=== PATIENT | male | born 1985 | race Caucasian/White ===

== ENCOUNTER 2016-07-05 17:40 | Inpatient (IN) | payer OTHER, MEDICAID ==
[~2016-07-05] VITALS: Ht 174 cm; Wt 64.2 kg
[2016-07-05 17:44] VITALS: BP 115/64; PULSE 113; RESP 13; O2SAT 100
--- NOTE | 2016-07-05 17:58 | ED.REPORT ---
HPI-General Illness Date of Service Jul 05, 2016 ED Provider: Dr. Bladimir New MD A 30 year old male with a history of gastroparesis, pancreatitis, acute kidney disease, EtOH abuse, depression, anxiety, polysubstance abuse, liver failure, chronic GI bleeds, anemia and noncompliance presents to the ED via [facility] complaining of heroin withdrawal symptoms that began earlier today. Patient is currently serving a sentence in halfway for 80 days. Patient lasted used heroin 4 days ago. Associated symptoms include nausea, vomiting and anxiety. He denies any other current medical complaints at this time. Nursing Notes Stated Complaint: DEHYDRATION Chief Complaint: General Complaint Nursing Notes Reviewed: Yes Allergies: Coded Allergies: Penicillins (Verified Allergy, Unknown, 07/05/16) venom-honey bee (Verified Allergy, Unknown, 07/05/16) REPORTED FROM CHILDHOOD, DOESN'T REMEMBER No Active Prescriptions or Reported Meds General Time Seen by MD: 17:58 Chief Complaint Other (Withdrawal symptoms) Hx Obtained From: Patient Arrived By: Police Onset Occurred: Yesterday Symptom Duration: Since onset Associated with: Reports: Nausea, Vomiting, Denies: Fever Pertinent Negative: Pt denies other symptoms Recent Healthcare: No recent doctor visit, No recent hospitalization Past Medical History Past Medical History gastroparesis, pancreatitis, liver failure, recurrent small bowel obstructions, alcohol dependency, acute kidney disease, anemia, depression, anxiety, PUD with history of GI bleeding, esophageal dilation, polysubstance abuse, h/o noncompliance Past Surgical History Gastrojejunostomy Michael-en-Y surgery Smoking History Current Every Day Smoker Social History Alcohol Use: 1-3 per day Drug Use: Cocaine, IV drugs, Meth Other Social History: Poor social support, Local resident (Pt currently in halfway ) Ambulatory Status Independent Review of Systems Pt is currently complaining of withdrawal symptoms. Full Review of Systems Constitutional: Denies: Chills, Fever Respiratory: Denies: Shortness of breath Cardiovascular: Denies: Chest pain GI: Reports: Nausea, Vomiting, Denies: Abdominal pain, Diarrhea Neurologic: Denies: Change LOC Complete sys rev & neg: except as marked. Physical Exam Vital Signs Vital Signs Date Time Temp Pulse Resp B/P Pulse Ox O2 Delivery O2 Flow Rate FiO2 07/05/16 19:39 93 16 112/62 99 Room Air 07/05/16 17:44 36.5 113 13 115/64 100 Initial VS: Reviewed Neck: Supple, Non-tender, Full range of motion Skin: Warm, Dry, No cyanosis Psychiatric: Mood/affect normal, Behavior normal, Normal thought content General/Constitutional: Awake, Alert Behavior: Positive: Anxious Head / Eyes: Atraumatic, Normocephalic, PERRL ENT: Atraumatic, Airway patent Mouth: Positive: Mucous membranes dry Respiratory / Chest: Atraumatic, Breath sounds NL, Breath sounds = bilat Cardiovascular: Regular rhythm, Heart sounds NL Heart Rate / Rhythm: Positive: Tachycardia Abdomen: Atraumatic, Soft Upper Extremities Upper Extremity / MS: Atraumatic, Neurologic intact, Vascular intact Lower Extremity / Pelvis / MS: Atraumatic, Neurologic intact, Vascular intact Interpretation & Diagnostics Lab Results Interpretation Result Diagram: 07/05/16185707/05/161857 Test 07/05/16 18:58 White Blood Count 13.5th/mm3 (3.8-10.1) Red Blood Count 3.85mil/mm3 (4.40-5.80) Hemoglobin 11.1g/dL (13.8-17.2) Hematocrit 34.5% (41.0-50.0) Mean Corpuscular Volume 89.6fL (81-100) Mean Corpuscular Hemoglobin 28.8pg (27.0-35.0) Mean Corpuscular Hemoglobin Concent 32.2% (32.0-37.0) Red Cell Distribution Width 14.2% (12.3-15.4) Platelet Count 520bil/L (150-400) Neutrophils (%) (Auto) 79.8% (40-74) Lymphocytes (%) (Auto) 13.0% (14-46) Monocytes (%) (Auto) 6.8% (4-12) Eosinophils (%) (Auto) 0.1% (0-5) Basophils (%) (Auto) 0.1% (0-3) Sodium Level 133mEq/L (134-144) Potassium Level 3.4mEq/L (3.5-5.2) Chloride Level 63mEq/L (97-108) Carbon Dioxide Level 44mmol/L (18-29) Blood Urea Nitrogen 74mg/dL (6-20) Creatinine 6.77mg/dL (0.76-1.27) Estimat Glomerular Filtration Rate 10mL/min (>59) Glucose Level 94mg/dL (60-99) Calcium Level 8.1mg/dL (8.5-10.1) Total Bilirubin 0.5mg/dL (0.0-1.2) Aspartate Amino Transf (AST/SGOT) 25U/L (0-50) Alanine Aminotransferase (ALT/SGPT) 20U/L (0-44) Alkaline Phosphatase 139U/L (25-150) Total Protein 9.6g/dL (6.4-8.4) Albumin 4.3g/dL (3.4-5.0) Lipase 20U/L (13-60) Re-Eval/Medical Decision Time of Eval: 20:04 Patient Status: Condition improved Re-Evaluation/Progress Note: Patient is rechecked. He is informed of his lab results and diagnosis. All questions are addressed. He understands and agrees with the treatment plan. Patient is currently requesting anxiety medication. Consultation : Referral / Consult Name: Robb Landaverde MD Consulted With: Hospitalist Call Returned at: 20:30 Gynecological Assistant: Will see patient, Agrees with eval, Agrees with plan Counseled Regarding: Diagnosis, Lab results, Need for admission Discharge & Departure Primary Impression: Acute on chronic renal insufficiency Additional Impressions: Heroin withdrawal Vomiting Vomiting type: unspecified Vomiting Intractability: unspecified Nausea presence: with nausea Qualified Code: R11.2 - Nausea with vomiting, unspecified Lactic acidosis Disposition: ADMITTED TO HOSPITAL Discharge Condition All VS Reviewed: Yes Condition: Stable Referrals: [facility] (PCP) [facility] Scribe Attestation Portions of this note were transcribed by Tima Culp. I, Dr. New personally performed the history, physical exam and medical decision-making; I reviewed and confirmed the accuracy of the information in the transcribed note. Signed by: Tammie Pino, 07/05/16 Bladimir Damon DO Jul 05, 2016 17:58 TIMA CULP Jul 05, 2016 18:50 TIM[facility] CULP Jul 05, 2016 18:50
[2016-07-05] MEDS ORDERED: 0.9% Sodium Chloride 1,000 ML IV SCH (18:45)
[2016-07-05] MEDS ORDERED: Ondansetron 2 mg/mL 2 mL Inj IVPUSH PRN (18:45)
[2016-07-05 19:09] LABS: BASOPHILS % (AUTO) 0.1 % (0-3); EOSINOPHILS % (AUTO) 0.1 % (0-5); MONOCYTES % (AUTO) 6.8 % (4-12); Mean Corpuscular Hemoglobin 28.8 pg (27.0-35.0); Mean Corpuscular Volume 89.6 fL (81-100); NEUTROPHILS % (AUTO) 79.8 % (40-74); Platelet Count 520 bil/L (150-400)
[2016-07-05 19:39] VITALS: BP 112/62; PULSE 93; RESP 16; O2SAT 99
[2016-07-05] MEDS ORDERED: Polyethylene Glycol (PEG) 17 Gm Powder PO PRN (20:35)
[2016-07-05] MEDS ORDERED: Alum-Mag Hydrox-Simeth 30 mL Suspension PO PRN (20:35)
[2016-07-05] MEDS: 0.9% Sodium Chloride 1,000 ML IV SCH (21:23)
[2016-07-05 21:48] VITALS: PULSE 100; RESP 15; O2SAT 95
[2016-07-05 22:00] VITALS: BP 103/64; PULSE 93; RESP 20; O2SAT 99
[2016-07-05 22:50] LABS: APPEARANCE,URINE CLEAR (CLEAR,HAZY); COLOR,URINE YELLOW (YELLOW); OCCULT BLOOD,URINE TRACE (NEGATIVE); PH,URINE 8.5 (5.0-8.0); UROBILINOGEN,URINE NORMAL (NORMAL)
[2016-07-05] MEDS: LORazepam 1 mg Tablet PO PRN (22:56)
[2016-07-05] MEDS: Ondansetron 2 mg/mL 2 mL Inj IVPUSH PRN (22:57)
[2016-07-05 23:10] VITALS: PULSE 89
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
[2016-07-06] VITALS (8 sets, daily range): BP systolic 98–115; BP diastolic 59–69; PULSE 85–117; RESP 16–21; O2SAT 95–100
[2016-07-06] MEDS: Ondansetron 2 mg/mL 2 mL Inj IVPUSH PRN ×2 (05:27→06:20)
--- NOTE | 2016-07-06 06:31 | NUR ---
Admit to Room 1021 Patient admitted to room 1021 from the ED at 2155 accompanied by ED staff. Chief complaint from patient is nausea and "not feeling good". VSS. Bowel sounds hypoactive. Anti-emetic administered along with anti anxiety medication. Patient cooperative with assessment . Call light within reach. Patient requesting to rest.
[2016-07-06 06:49] LABS: BASOPHILS % (AUTO) 0.3 % (0-3); EOSINOPHILS % (AUTO) 0.7 % (0-5); MONOCYTES % (AUTO) 6.4 % (4-12); Mean Corpuscular Hemoglobin 28.4 pg (27.0-35.0); Mean Corpuscular Volume 89.5 fL (81-100); NEUTROPHILS % (AUTO) 78.9 % (40-74); Platelet Count 388 bil/L (150-400)
[2016-07-06] MEDS: LORazepam 1 mg Tablet PO PRN ×3 (07:52→16:37)
[2016-07-06] MEDS: 0.9% Sodium Chloride 1,000 ML IV SCH ×4 (08:43→19:20)
--- NOTE | 2016-07-06 12:03 | PCM.PNMED ---
Subjective Date of Service Jul 06, 2016 Subjective Patient had eaten a full breakfast but then had some nausea vomiting subsequent to that. He currently is complaining of some mild upper abdominal pain. Exam Vital Signs Vital Sign - Last Date Time Temp Pulse Resp B/P Pulse Ox O2 Delivery O2 Flow Rate FiO2 07/06/16 08:37 100 07/06/16 06:20 36.8 20 99/61 96 Room Air Intake and Output 07/05/16 07/05/16 07/06/16 Cumulative From/Thru 15:00 23:00 07:00 07/05/16 17:44 - 07/06/16 06:40 Intake Total 1000 ml 1920 ml 2920 ml Output Total 1400 ml 1400 ml Balance 1000 ml 520 ml 1520 ml Intake Oral 1150 ml 1150 ml IV Total 1000 ml 770 ml 1770 ml Output Urine Total 1000 ml 1000 ml Emesis 400 ml 400 ml # Voids 2 2 # Bowel Movements 0 0 Exam Constitutional: Comfortable-appearing young male Head: Normocephalic atraumatic Chest: Clear to auscultation Cor: Regular rate and rhythm S1-S2 Abdomen: There is mild tenderness in the epigastrium no rebound no guarding Extremities: No pedal edema Neuro: Alert and oriented 3, motor strength is intact bilaterally Lab and Diagnostics Laboratory Tests 72 Hours Test 07/05/16 18:58 07/05/16 22:23 07/05/16 22:28 07/06/16 06:27 White Blood Count 13.5th/mm3 (3.8-10.1) 8.7th/mm3 (3.8-10.1) Red Blood Count 3.85mil/mm3 (4.40-5.80) 3.13mil/mm3 (4.40-5.80) Hemoglobin 11.1g/dL (13.8-17.2) 8.9g/dL (13.8-17.2) Hematocrit 34.5% (41.0-50.0) 28.0% (41.0-50.0) Mean Corpuscular Volume 89.6fL (81-100) 89.5fL (81-100) Mean Corpuscular Hemoglobin 28.8pg (27.0-35.0) 28.4pg (27.0-35.0) Mean Corpuscular Hemoglobin Concent 32.2% (32.0-37.0) 31.8% (32.0-37.0) Red Cell Distribution Width 14.2% (12.3-15.4) 14.1% (12.3-15.4) Platelet Count 520bil/L (150-400) 388bil/L (150-400) Neutrophils (%) (Auto) 79.8% (40-74) 78.9% (40-74) Lymphocytes (%) (Auto) 13.0% (14-46) 13.5% (14-46) Monocytes (%) (Auto) 6.8% (4-12) 6.4% (4-12) Eosinophils (%) (Auto) 0.1% (0-5) 0.7% (0-5) Basophils (%) (Auto) 0.1% (0-3) 0.3% (0-3) Sodium Level 133mEq/L (134-144) 130mEq/L (134-144) Potassium Level 3.4mEq/L (3.5-5.2) 2.8mEq/L (3.5-5.2) Chloride Level 63mEq/L (97-108) 71mEq/L (97-108) Carbon Dioxide Level 44mmol/L (18-29) 35mmol/L (18-29) Blood Urea Nitrogen 74mg/dL (6-20) 69mg/dL (6-20) Creatinine 6.77mg/dL (0.76-1.27) 6.65mg/dL (0.76-1.27) Estimat Glomerular Filtration Rate 10mL/min (>59) 10mL/min (>59) Glucose Level 94mg/dL (60-99) 186mg/dL (60-99) Lactic Acid Level 7.0mmol/L (0.4-2.0) 0.7mmol/L (0.4-2.0) Calcium Level 8.1mg/dL (8.5-10.1) 7.1mg/dL (8.5-10.1) Total Bilirubin 0.5mg/dL (0.0-1.2) Aspartate Amino Transf (AST/SGOT) 25U/L (0-50) Alanine Aminotransferase (ALT/SGPT) 20U/L (0-44) Alkaline Phosphatase 139U/L (25-150) Total Protein 9.6g/dL (6.4-8.4) Albumin 4.3g/dL (3.4-5.0) Lipase 20U/L (13-60) Urine Color Yellow (YELLOW) Urine Appearance Clear (CLEAR,HAZY) Urine pH 8.5 (5.0-8.0) Urine Specific Hines 1.010 (1.003-1.035) Urine Protein 30mg/dL (NEG,TRACE) Urine Glucose (UA) Negativemg/dL (NEGATIVE) Urine Ketones Negativemg/dL (NEGATIVE) Urine Occult Blood Trace (NEGATIVE) Urine Nitrite Negative (NEGATIVE) Urine Bilirubin Negative (NEGATIVE) Urine Urobilinogen Normalmg/dL (NORMAL) Urine Leukocyte Esterase Negative (NEGATIVE) Urine RBC 0-2/hpf (0-2) Urine WBC 0-5/hpf (0-5) Urine Epithelial Cells Occasional/hpf (NONE-MOD) Urine Crystals None seen (NONE SEEN) Urine Bacteria Few/hpf (NONE-FEW) Urine Hyaline Casts None/lpf (NONE) Urine Granular Casts None seen (NONE SEEN) Urine Waxy Casts None seen (NONE SEEN) Urine Red Blood Cell Casts None seen (NONE SEEN) Urine White Blood Cell Casts None seen (NONE SEEN) Urine Mucus None seen (None Seen) Urine Trichomonas None seen (NONE SEEN) Urine Yeast None (NONE SEEN) Urinalysis Comment None Urine Culture Reflexed Not indicated Result Diagram: 07/06/1627 07/06/16626 Assessment & Plan Pedro Pablo Velazquez is a 30 year old male with Gastroparesis, history of recurrent pancreatitis, Chronic Kidney disease, EtOH abuse, depression, anxiety, polysubstance abuse and noncompliance presents to the [facility] emergency department via [facility] complaining of heroin withdrawal symptoms but workup showed significant Acute Kidney Injury. 1. Acute Kidney injury on Chronic kidney disease stage 3. Present on admission Likely prerenal with contraction alkalosis, severe hyponatremia and hypokalemia. Patient vomiting. Patient has a long history of renal issues mainly due to dehydration and previous imaging showed he has kidney disease. Patient not on any medications making interstitial nephritis or other intrinsic renal diseases. - continue IV fluids resuscitation - Urinalysis requested, looking for proteinuria and casts - consider imaging such as Renal ultrasound to rule out obstructive causes - consider Nephrology consult if no improvements overnight -Check abdominal ultrasound and trend BUN and creatinines. Looking at the previous past creatinines A go anywhere from 4.5 up to about 6 and BUNs anywhere from about 40-100 on previous checks. 2. Lactic acidosis. Present on admission Due to tissue hypoxia. Patient not complaining of any abdominal pain which is reassuring that he does not have bowel ischemia - trending levels till normal. This a.m.'s was normal. - continue IV fluids 3. Systemic Inflammatory response. Present on admission Source of infection is not identified. Prior history of Pancreatitis, a possible cause of SIRS - monitor closely - checking Lipase levels 4. Heroine Abuse. Patient's current nausea and vomiting could be related to Heroine withdrawal - monitor for withdrawal symptoms - consult psychotherapist social worker for resources 5 Anemia, chronic. Normocytic secondary to Chronic disease. No bleeding noted 6. Depression and anxiety. - Ativan 1 mg PO tid PRN started 7. Chronic pain. - Tylenol and avoid NSAIDs due to renal disease - Acetaminophen as needed for mild pain/fever/headache - Bowel regimen as needed - Antiemetic as needed 8. Mild epigastric pain Lipase was normal. Check abdominal ultrasound. Patient admitted under inpatient status with expected length of stay > 2 midnights for severity of present symptoms, complexities of treatment plan and risk for adverse event . VTE Mechanical Devices: Intermittant Pneumatic CD Resuscitation Status: CPR: Attempt Resuscitation Time spent 30 minutes. Yelitza Andersen MD Jul 06, 2016 12:03
--- NOTE | 2016-07-06 14:08 | NUR ---
Social Work Note - Initial Assessment Pedro Pablo Velazquez is a 30 year old admitted for chronic kidney disease, gastroparesis, history of recurrent pancreatitis, polysubstance abuse, noncompliant. EMR reviewed: Pt has [facility] insurance. No PCP. RN INVASIVE met with pt - introduced D/C planning and explained SW role. Pt lives at home in [place] with his significant other. He is independent at baseline. He is not working, has monthly income from his [place]. He was [facility]. He did not want to talk with SW about his legal history. He has a substance use history - he states that he used methamphetamines, heroin, denies any current drug use. He states he just "stopped on my own" and is not interested in treatment. He is aware of community resources available through his [place] if he wants them. RN INVASIVE explored mental Health - Pt admits to depression. He denies any suicidal ideation, stating that he is living for his girlfriend. Denies wanting resources for mental health Pt does not have a PCP - He said that he does not want to go to the [facility] clinic - does not want a doctor through his [facility] insurance. He said he got a new insurance card in June and will call the insurance to find a new doctor. RN INVASIVE explored medical compliance - Per [facility], Pt has had 13 ED visits in the past year to multiple ED in the area. RN INVASIVE identified that his renal failure is worsening - provided education about the importance of having a family doctor, about abstaining from drugs and alcohol, eating appropriate food. RN INVASIVE will continue to follow per the [facility] program. Plan: D/C home with family in [facility]. NOEL Robertson
[2016-07-06] MEDS: MetoCLOpramide 5 mg/mL 2 mL Inj IVPUSH PRN (17:17)
--- NOTE | 2016-07-06 17:33 | NUR ---
Emesis P: Pt denies nausea prior to meals but had 400cc emesis after breakfast and 900cc emesis after lunch paired with increased abdominal pain. I: notified, abdominal US scheduled for the morning, pt to be NPO at midnight. Order received for 2.5mg Reglan to help with gastroparesis, dose confirmed to be for renal impaired pts. E: Pt continues to deny nausea at rest. Will assess effectiveness after dinner. Addendum: 07/06/16 at 1929 by DOMINICK MCLEOD RN Large emesis/AMS Pt with large emesis projectile over bed and self immediately following dinner. Pt with altered LOC and after being told he was "done eating" he reached for his salad and tried eating a cucumber with dirty hands. Pt showered and cleaned up and is now somnolent. PANCHO Perkins RN given report.
[2016-07-06] MEDS ORDERED: KCl 40 mEq/D5W 500 mL 40 MEQ in IV Premix 1 EACH IV ONE (19:35)
[2016-07-07 00:10] VITALS: BP 119/74; PULSE 80; RESP 17; O2SAT 98
[2016-07-07 04:58] VITALS: BP 114/66; PULSE 97; RESP 17; O2SAT 99
--- NOTE | 2016-07-07 05:16 | NUR ---
Anxiety/ Director Of Billing called Pt. has been moderately anxious on and off throughout shift. Pt. started to cry. This RN asked if pt. would benefit from visit from straw hat presser, and pt. stated yes. Left message on straw hat presser's voicemail. Will continue to monitor.
[2016-07-07] MEDS: 0.9% Sodium Chloride 1,000 ML IV SCH ×2 (05:40→11:08)
[2016-07-07] MEDS: MetoCLOpramide 5 mg/mL 2 mL Inj IVPUSH PRN ×3 (06:33→23:09)
[2016-07-07 07:14] VITALS: PULSE 91
[2016-07-07 09:00] VITALS: PULSE 85
[2016-07-07 09:29] LABS: BASOPHILS % (AUTO) 1.4 % (0-3); EOSINOPHILS % (AUTO) 0.7 % (0-5); MONOCYTES % (AUTO) 7.4 % (4-12); Mean Corpuscular Hemoglobin 28.4 pg (27.0-35.0); Mean Corpuscular Volume 89.4 fL (81-100); NEUTROPHILS % (AUTO) 67.7 % (40-74); Platelet Count 344 bil/L (150-400)
--- NOTE | 2016-07-07 10:28 | DRSVH ---
PROCEDURE: US ABDOMEN INDICATIONS: arf,epigastric pain TECHNIQUE: Real-time scanning was performed of the abdominal and retroperitoneal organs, with image documentatio n. COMPARISON: [facility], US, US ABDOMEN, 03/17/2015, 8:39. FINDINGS: Liver length: 16.50 cm Gallbladder Wall Thickness: 2.40 mm CHD: Normal. CBD: 5.70 mm Spleen length: 12.17 cm Right kidney length: 9.97 cm Left kidney length: 11.08 cm Aorta(Proximal): Not well-seen. Aorta(Mid): 1.74 cm Aorta(Distal): 1.62 cm RCIA: Not well-seen. No LCIA: Not well-seen. Liver: Liver is diffusely increased in echogenicity. No focal hepatic abnormalities identified. No rmal hepatic size. Gallbladder: Normal gallbladder. Biliary ducts: Intrahepatic bile ducts are non-dilated. Extrahepatic bile duct caliber is normal. Normal is 6-7 mm or less in diameter, or 10 mm or less post-cholecystectomy. Pancreas: Not well-seen. Spleen: Spleen is normal in size and homogeneous in echotexture. Kidneys: Kidneys are normal in size and there is increase in renal cortical echogenicity. No hydron ephrosis or nephrolithiasis. No solid masses. Aorta: Visualized aorta is normal in caliber at less than 3 cm. Iliacs: Not well-seen. IVC: Intrahepatic inferior vena cava is patent. Miscellaneous: No free abdominal fluid. IMPRESSION: 1. Increased hepatic echogenicity noted likely related to fatty infiltration of the liver but other s ources of hepatocellular disease cannot be excluded. Recommend clinical correlation. 2. Increased renal cortical echogenicity redemonstrated consistent with medical renal disease. Dictated by: Rafael Croado [facility] Interpreted: Hellen Gibbs MD on 07/07/2016 at 10:27 Transcribed by: JADON on 07/07/2016 at 10:28 Approved by: Hellen Gibbs MD, PhD on 07/07/2016 at 16:26
--- NOTE | 2016-07-07 15:25 | NUR ---
spiritual care: nurse referral brief visit, pt awaiting shower and i updated him on timeline for assistance. pt agreeable/appreciative for return visit later in day or tomorrow.
[2016-07-07 15:49] VITALS: BP 110/73; PULSE 100; RESP 17; O2SAT 97
--- NOTE | 2016-07-07 16:16 | PCM.PNMED ---
Subjective Date of Service Jul 07, 2016 Subjective Patient had another episode of vomiting this morning. He denies any nausea denies any abdominal pain. Exam Vital Signs Vital Sign - Last Date Time Temp Pulse Resp B/P Pulse Ox O2 Delivery O2 Flow Rate FiO2 07/07/16 15:49 36.7 100 17 110/73 97 Room Air Intake and Output 07/06/16 07/06/16 07/07/16 Cumulative From/Thru 15:00 23:00 07:00 07/05/16 17:44 - 07/07/16 07:00 Intake Total 2585 ml 1408 ml 6913 ml Output Total 1800 ml 875 ml 4075 ml Balance 785 ml 533 ml 2838 ml Intake Oral 1120 ml 0 ml 2270 ml IV Total 1465 ml 1408 ml 4643 ml Output Urine Total 900 ml 875 ml 2775 ml Emesis 900 ml 1300 ml # Voids 2 # Bowel Movements 0 0 Exam Constitutional: Young male in no acute distress currently did have some agitation earlier today Head: Normocephalic atraumatic Chest: Clear to auscultation Cor: Regular rate and rhythm S1-S2 without murmur Abdomen: Soft nontender bowel sounds positive Extremities: No pedal edema Lab and Diagnostics Laboratory Tests 72 Hours Test 07/05/16 18:58 07/05/16 22:23 07/05/16 22:28 07/06/16 06:27 White Blood Count 13.5th/mm3 (3.8-10.1) 8.7th/mm3 (3.8-10.1) Red Blood Count 3.85mil/mm3 (4.40-5.80) 3.13mil/mm3 (4.40-5.80) Hemoglobin 11.1g/dL (13.8-17.2) 8.9g/dL (13.8-17.2) Hematocrit 34.5% (41.0-50.0) 28.0% (41.0-50.0) Mean Corpuscular Volume 89.6fL (81-100) 89.5fL (81-100) Mean Corpuscular Hemoglobin 28.8pg (27.0-35.0) 28.4pg (27.0-35.0) Mean Corpuscular Hemoglobin Concent 32.2% (32.0-37.0) 31.8% (32.0-37.0) Red Cell Distribution Width 14.2% (12.3-15.4) 14.1% (12.3-15.4) Platelet Count 520bil/L (150-400) 388bil/L (150-400) Neutrophils (%) (Auto) 79.8% (40-74) 78.9% (40-74) Lymphocytes (%) (Auto) 13.0% (14-46) 13.5% (14-46) Monocytes (%) (Auto) 6.8% (4-12) 6.4% (4-12) Eosinophils (%) (Auto) 0.1% (0-5) 0.7% (0-5) Basophils (%) (Auto) 0.1% (0-3) 0.3% (0-3) Sodium Level 133mEq/L (134-144) 130mEq/L (134-144) Potassium Level 3.4mEq/L (3.5-5.2) 2.8mEq/L (3.5-5.2) Chloride Level 63mEq/L (97-108) 71mEq/L (97-108) Carbon Dioxide Level 44mmol/L (18-29) 35mmol/L (18-29) Blood Urea Nitrogen 74mg/dL (6-20) 69mg/dL (6-20) Creatinine 6.77mg/dL (0.76-1.27) 6.65mg/dL (0.76-1.27) Estimat Glomerular Filtration Rate 10mL/min (>59) 10mL/min (>59) Glucose Level 94mg/dL (60-99) 186mg/dL (60-99) Lactic Acid Level 7.0mmol/L (0.4-2.0) 0.7mmol/L (0.4-2.0) Calcium Level 8.1mg/dL (8.5-10.1) 7.1mg/dL (8.5-10.1) Total Bilirubin 0.5mg/dL (0.0-1.2) Aspartate Amino Transf (AST/SGOT) 25U/L (0-50) Alanine Aminotransferase (ALT/SGPT) 20U/L (0-44) Alkaline Phosphatase 139U/L (25-150) Total Protein 9.6g/dL (6.4-8.4) Albumin 4.3g/dL (3.4-5.0) Lipase 20U/L (13-60) Urine Color Yellow (YELLOW) Urine Appearance Clear (CLEAR,HAZY) Urine pH 8.5 (5.0-8.0) Urine Specific [place] 1.010 (1.003-1.035) Urine Protein 30mg/dL (NEG,TRACE) Urine Glucose (UA) Negativemg/dL (NEGATIVE) Urine Ketones Negativemg/dL (NEGATIVE) Urine Occult Blood Trace (NEGATIVE) Urine Nitrite Negative (NEGATIVE) Urine Bilirubin Negative (NEGATIVE) Urine Urobilinogen Normalmg/dL (NORMAL) Urine Leukocyte Esterase Negative (NEGATIVE) Urine RBC 0-2/hpf (0-2) Urine WBC 0-5/hpf (0-5) Urine Epithelial Cells Occasional/hpf (NONE-MOD) Urine Crystals None seen (NONE SEEN) Urine Bacteria Few/hpf (NONE-FEW) Urine Hyaline Casts None/lpf (NONE) Urine Granular Casts None seen (NONE SEEN) Urine Waxy Casts None seen (NONE SEEN) Urine Red Blood Cell Casts None seen (NONE SEEN) Urine White Blood Cell Casts None seen (NONE SEEN) Urine Mucus None seen (None Seen) Urine Trichomonas None seen (NONE SEEN) Urine Yeast None (NONE SEEN) Urinalysis Comment None Urine Culture Reflexed Not indicated Test 07/07/16 09:24 White Blood Count 5.7th/mm3 (3.8-10.1) Red Blood Count 3.20mil/mm3 (4.40-5.80) Hemoglobin 9.1g/dL (13.8-17.2) Hematocrit 28.6% (41.0-50.0) Mean Corpuscular Volume 89.4fL (81-100) Mean Corpuscular Hemoglobin 28.4pg (27.0-35.0) Mean Corpuscular Hemoglobin Concent 31.8% (32.0-37.0) Red Cell Distribution Width 13.8% (12.3-15.4) Platelet Count 344bil/L (150-400) Neutrophils (%) (Auto) 67.7% (40-74) Lymphocytes (%) (Auto) 22.4% (14-46) Monocytes (%) (Auto) 7.4% (4-12) Eosinophils (%) (Auto) 0.7% (0-5) Basophils (%) (Auto) 1.4% (0-3) Sodium Level 132mEq/L (134-144) Potassium Level 3.3mEq/L (3.5-5.2) Chloride Level 81mEq/L (97-108) Carbon Dioxide Level 35mmol/L (18-29) Blood Urea Nitrogen 59mg/dL (6-20) Creatinine 5.93mg/dL (0.76-1.27) Estimat Glomerular Filtration Rate 12mL/min (>59) Glucose Level 86mg/dL (60-99) Calcium Level 7.6mg/dL (8.5-10.1) Total Bilirubin 0.3mg/dL (0.0-1.2) Aspartate Amino Transf (AST/SGOT) 22U/L (0-50) Alanine Aminotransferase (ALT/SGPT) 14U/L (0-44) Alkaline Phosphatase 118U/L (25-150) Total Protein 6.9g/dL (6.4-8.4) Albumin 3.3g/dL (3.4-5.0) Result Diagram: 07/07/1692307/07/16923 X-Rays, CTs and MRIs PROCEDURE: US ABDOMEN INDICATIONS: arf,epigastric pain TECHNIQUE: Real-time scanning was performed of the abdominal and retroperitoneal organs, with image documentation. COMPARISON: [facility], US, US ABDOMEN, 03/17/2015, 8:39. FINDINGS: Liver length: 16.50 cm Gallbladder Wall Thickness: 2.40 mm CHD: Normal. CBD: 5.70 mm Spleen length: 12.17 cm Right kidney length: 9.97 cm Left kidney length: 11.08 cm Aorta(Proximal): Not well-seen. Aorta(Mid): 1.74 cm Aorta(Distal): 1.62 cm RCIA: Not well-seen. No LCIA: Not well-seen. Liver: Liver is diffusely increased in echogenicity. No focal hepatic abnormalities identified. Normal hepatic size. Gallbladder: Normal gallbladder. Biliary ducts: Intrahepatic bile ducts are non-dilated. Extrahepatic bile duct caliber is normal. Normal is 6-7 mm or less in diameter, or 10 mm or less post-cholecystectomy. Pancreas: Not well-seen. Spleen: Spleen is normal in size and homogeneous in echotexture. Kidneys: Kidneys are normal in size and there is increase in renal cortical echogenicity. No hydronephrosis or nephrolithiasis. No solid masses. Aorta: Visualized aorta is normal in caliber at less than 3 cm. Iliacs: Not well-seen. IVC: Intrahepatic inferior vena cava is patent. Miscellaneous: No free abdominal fluid. IMPRESSION: 1. Increased hepatic echogenicity noted likely related to fatty infiltration of the liver but other sources of hepatocellular disease cannot be excluded. Recommend clinical correlation. 2. Increased renal cortical echogenicity redemonstrated consistent with medical renal disease. Dictated by: Rafael RIOS Interpreted: Hellen Gibbs MD on 07/07/2016 at 10:27 Transcribed by: JADON on 07/07/2016 at 10:28 Assessment & Plan Pedro Pablo Velazquez is a 30 year old male with Gastroparesis, history of recurrent pancreatitis, Chronic Kidney disease, EtOH abuse, depression, anxiety, polysubstance abuse and noncompliance presents to the [facility] emergency department via [facility] complaining of heroin withdrawal symptoms but workup showed significant Acute Kidney Injury. 1. Acute Kidney injury on Chronic kidney disease stage 3. Present on admission Likely prerenal with contraction alkalosis, severe hyponatremia and hypokalemia. Patient vomiting. Patient has a long history of renal issues mainly due to dehydration and previous imaging showed he has kidney disease. Patient not on any medications making interstitial nephritis or other intrinsic renal diseases. - continue IV fluids resuscitation - Urinalysis requested, looking for proteinuria and casts - consider imaging such as Renal ultrasound to rule out obstructive causes - consider Nephrology consult if no improvements overnight -Check abdominal ultrasound and trend BUN and creatinines. Looking at the previous past creatinines A go anywhere from 4.5 up to about 6 and BUNs anywhere from about 40-100 on previous checks. -BUN/Cr slightly improved today. - US reveals some hepatic and renal disease but no focal lesions # Recurrent N/v,acute,poa - Check CT scan abd/pelvis 2. Lactic acidosis. Present on admission Due to tissue hypoxia. Patient not complaining of any abdominal pain which is reassuring that he does not have bowel ischemia - trending levels till normal. This a.m.'s was normal. - continue IV fluids 3. Systemic Inflammatory response. Present on admission Source of infection is not identified. Prior history of Pancreatitis, a possible cause of SIRS - monitor closely - checking Lipase levels 4. Heroine Abuse. Patient's current nausea and vomiting could be related to Heroine withdrawal - monitor for withdrawal symptoms - consult social director for resources 5 Anemia, chronic. Normocytic secondary to Chronic disease. No bleeding noted 6. Depression and anxiety. - Ativan 1 mg PO tid PRN started 7. Chronic pain. - Tylenol and avoid NSAIDs due to renal disease - Acetaminophen as needed for mild pain/fever/headache - Bowel regimen as needed - Antiemetic as needed 8. Mild epigastric pain Lipase was normal. Check abdominal ultrasound. Patient admitted under inpatient status with expected length of stay > 2 midnights for severity of present symptoms, complexities of treatment plan and risk for adverse event . VTE Mechanical Devices: Intermittant Pneumatic CD Resuscitation Status: CPR: Attempt Resuscitation Time spent 30 minutes Yelitza Andersen MD Jul 07, 2016 16:16
--- NOTE | 2016-07-07 16:40 | NUR ---
Agitation P: Pt c/o severe hunger and has increasing anxiety, restlessness and is emotionally labile. CIWA is less than 6, 1mg IV Ativan has been given q 4hrs, pt not understanding reasoning between not eating and needing to be NPO for imaging. Situation escalated when pt threw phone with no staff in the room out of frustration; security called and pt expressed frustration but agreed to cooperate with staff. I: notified, order received for PO Librium to work in conjunction with Ativan. Plan to advance diet to clears after imaging. E: Librium/Ativan combo effective for pt today. He expressed remorse for prior behaviors but states "I just want to know whats going on!" and doesn't comprehend plan of care. Pt has been agreeable to staff terms and cooperative but continues to be anxious and requesting constant food. CT to be performed this evening with plan to advance diet afterwards.
[2016-07-07] MEDS: LORazepam 1 mg Tablet PO PRN (18:44)
--- NOTE | 2016-07-07 21:21 | NUR ---
Of floor to CT Off floor to CT at 2114 back on floor at [id number].
--- NOTE | 2016-07-07 21:25 | DRSVH ---
PROCEDURE: CT ABDOMEN AND PELVIS WITHOUT CONTRAST ([id number]) INDICATIONS: N/V TECHNIQUE: After the administration of oral contrast, 5 mm thick sections acquired from the diaphragms to the sy mphysis. 5 mm coronal and sagittal reformats were performed. For radiation dose reduction, the foll owing was used: automated exposure control, adjustment of mA and/or kV according to patient size. COMPARISON: [facility], CT, ABD/PELVIS W/O CON (PNL), 04/13/2014, 11:48. FINDINGS: Image quality: Excellent. ABDOMEN: Lung bases: Consolidation is present within the left lower lobe. Solid organs: Liver and spleen are normal in size. Gallbladder surgically absent. Pancreas is norm al in size. No adrenal nodules. Both kidneys are normal in size, without hydronephrosis or nephroli thiasis. Peritoneum and bowel: Bowel loops demonstrate normal wall thickness and caliber. No free fluid or a ir. Normal appendix. Possible postsurgical staple line in the left abdomen although recommend correl ation to surgical history. Nodes and vessels: No retroperitoneal or mesenteric adenopathy by size criteria. Aorta and inferior vena cava are normal in size. Miscellaneous: No ventral hernias. PELVIS: Genitourinary: Bladder wall thickness is normal. Miscellaneous: No inguinal hernias or adenopathy. Bones: No suspicious bony lesions. Chronic rib deformities No vertebral body compression fractures. Probable physiologic wedging of a lower thoracic vertebral bodies IMPRESSION: Normal appendix. No acute abnormality. Dictated by: John Bear M.D. on 07/07/2016 at 21:19 Approved by: John Bear M.D. on 07/07/2016 at 21:24
[2016-07-07 21:34] VITALS: BP 101/63; PULSE 93; RESP 16; O2SAT 97
[2016-07-07] MEDS ORDERED: Alum-Mag Hydrox-Simeth 30 mL Suspension PO ONE (22:45)
[2016-07-07] MEDS ORDERED: Pantoprazole 4 mg/mL 10 mL Inj IVPUSH ONE (22:50)
[2016-07-07] MEDS ORDERED: HYDROmorphone 1 mg/mL Inj IVPUSH ONE (22:55)
[2016-07-08 00:03] VITALS: BP 109/60; PULSE 114; RESP 16; O2SAT 98
[2016-07-08] MEDS: 0.9% Sodium Chloride 1,000 ML IV SCH ×4 (00:16→20:54)
--- NOTE | 2016-07-08 02:53 | NUR ---
Logan Gaston called Logan gaston called. 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 put in new orders for antianxiety and pain meds. Will continue to monitor.
--- NOTE | 2016-07-08 07:38 | PCM.DIMED ---
Discharge Instructions Date of Service Jul 08, 2016 Dates of Hospitalization Jul 05, 2016 at 21:08 Diet No restrictions Activity No restrictions Call your provider Other (Worsening pain) Patient Instructions Follow-up with PCP in: 1 week Sherly Davis MD Jul 08, 2016 07:38
[2016-07-08 08:14] LABS: BASOPHILS % (AUTO) 0.8 % (0-3); MONOCYTES % (AUTO) 5.7 % (4-12); Mean Corpuscular Hemoglobin 28.6 pg (27.0-35.0); Mean Corpuscular Volume 88.3 fL (81-100); NEUTROPHILS % (AUTO) 77.9 % (40-74); Platelet Count 300 bil/L (150-400)
--- NOTE | 2016-07-08 08:42 | PCM.PNMED ---
Subjective Date of Service Jul 08, 2016 Subjective Patient has no complaints this morning he is resting comfortably in bed. Exam Vital Signs Vital Sign - Last Date Time Temp Pulse Resp B/P Pulse Ox O2 Delivery O2 Flow Rate FiO2 07/08/16 00:03 36.7 114 16 109/60 98 Room Air Intake and Output 07/07/16 07/07/16 07/08/16 Cumulative From/Thru 15:00 23:00 07:00 07/05/16 17:44 - 07/08/16 06:39 Intake Total 2692 ml 1392 ml 45170 ml Output Total 1700 ml 700 ml 6475 ml Balance 992 ml 692 ml 4522 ml Intake Oral 1920 ml 1392 ml 5582 ml IV Total 772 ml 5415 ml Output Urine Total 1700 ml 700 ml 5175 ml Emesis 1300 ml # Voids 2 # Bowel Movements 0 0 0 Exam Constitutional: Young male in no acute distress Head: Normocephalic atraumatic Chest: Clear to auscultation Cor: Regular rate and rhythm S1-S2 Abdomen: Soft nontender bowel sounds present Extremities: No pedal edema Lab and Diagnostics Laboratory Tests 72 Hours Test 07/05/16 18:58 07/05/16 22:23 07/05/16 22:28 07/06/16 06:27 White Blood Count 13.5th/mm3 (3.8-10.1) 8.7th/mm3 (3.8-10.1) Red Blood Count 3.85mil/mm3 (4.40-5.80) 3.13mil/mm3 (4.40-5.80) Hemoglobin 11.1g/dL (13.8-17.2) 8.9g/dL (13.8-17.2) Hematocrit 34.5% (41.0-50.0) 28.0% (41.0-50.0) Mean Corpuscular Volume 89.6fL (81-100) 89.5fL (81-100) Mean Corpuscular Hemoglobin 28.8pg (27.0-35.0) 28.4pg (27.0-35.0) Mean Corpuscular Hemoglobin Concent 32.2% (32.0-37.0) 31.8% (32.0-37.0) Red Cell Distribution Width 14.2% (12.3-15.4) 14.1% (12.3-15.4) Platelet Count 520bil/L (150-400) 388bil/L (150-400) Neutrophils (%) (Auto) 79.8% (40-74) 78.9% (40-74) Lymphocytes (%) (Auto) 13.0% (14-46) 13.5% (14-46) Monocytes (%) (Auto) 6.8% (4-12) 6.4% (4-12) Eosinophils (%) (Auto) 0.1% (0-5) 0.7% (0-5) Basophils (%) (Auto) 0.1% (0-3) 0.3% (0-3) Sodium Level 133mEq/L (134-144) 130mEq/L (134-144) Potassium Level 3.4mEq/L (3.5-5.2) 2.8mEq/L (3.5-5.2) Chloride Level 63mEq/L (97-108) 71mEq/L (97-108) Carbon Dioxide Level 44mmol/L (18-29) 35mmol/L (18-29) Blood Urea Nitrogen 74mg/dL (6-20) 69mg/dL (6-20) Creatinine 6.77mg/dL (0.76-1.27) 6.65mg/dL (0.76-1.27) Estimat Glomerular Filtration Rate 10mL/min (>59) 10mL/min (>59) Glucose Level 94mg/dL (60-99) 186mg/dL (60-99) Lactic Acid Level 7.0mmol/L (0.4-2.0) 0.7mmol/L (0.4-2.0) Calcium Level 8.1mg/dL (8.5-10.1) 7.1mg/dL (8.5-10.1) Total Bilirubin 0.5mg/dL (0.0-1.2) Aspartate Amino Transf (AST/SGOT) 25U/L (0-50) Alanine Aminotransferase (ALT/SGPT) 20U/L (0-44) Alkaline Phosphatase 139U/L (25-150) Total Protein 9.6g/dL (6.4-8.4) Albumin 4.3g/dL (3.4-5.0) Lipase 20U/L (13-60) Urine Color Yellow (YELLOW) Urine Appearance Clear (CLEAR,HAZY) Urine pH 8.5 (5.0-8.0) Urine Specific Mobile 1.010 (1.003-1.035) Urine Protein 30mg/dL (NEG,TRACE) Urine Glucose (UA) Negativemg/dL (NEGATIVE) Urine Ketones Negativemg/dL (NEGATIVE) Urine Occult Blood Trace (NEGATIVE) Urine Nitrite Negative (NEGATIVE) Urine Bilirubin Negative (NEGATIVE) Urine Urobilinogen Normalmg/dL (NORMAL) Urine Leukocyte Esterase Negative (NEGATIVE) Urine RBC 0-2/hpf (0-2) Urine WBC 0-5/hpf (0-5) Urine Epithelial Cells Occasional/hpf (NONE-MOD) Urine Crystals None seen (NONE SEEN) Urine Bacteria Few/hpf (NONE-FEW) Urine Hyaline Casts None/lpf (NONE) Urine Granular Casts None seen (NONE SEEN) Urine Waxy Casts None seen (NONE SEEN) Urine Red Blood Cell Casts None seen (NONE SEEN) Urine White Blood Cell Casts None seen (NONE SEEN) Urine Mucus None seen (None Seen) Urine Trichomonas None seen (NONE SEEN) Urine Yeast None (NONE SEEN) Urinalysis Comment None Urine Culture Reflexed Not indicated Test 07/07/16 09:24 07/08/16 08:12 White Blood Count 5.7th/mm3 (3.8-10.1) 11.5th/mm3 (3.8-10.1) Red Blood Count 3.20mil/mm3 (4.40-5.80) 2.90mil/mm3 (4.40-5.80) Hemoglobin 9.1g/dL (13.8-17.2) 8.3g/dL (13.8-17.2) Hematocrit 28.6% (41.0-50.0) 25.6% (41.0-50.0) Mean Corpuscular Volume 89.4fL (81-100) 88.3fL (81-100) Mean Corpuscular Hemoglobin 28.4pg (27.0-35.0) 28.6pg (27.0-35.0) Mean Corpuscular Hemoglobin Concent 31.8% (32.0-37.0) 32.4% (32.0-37.0) Red Cell Distribution Width 13.8% (12.3-15.4) 13.4% (12.3-15.4) Platelet Count 344bil/L (150-400) 300bil/L (150-400) Neutrophils (%) (Auto) 67.7% (40-74) 77.9% (40-74) Lymphocytes (%) (Auto) 22.4% (14-46) 14.4% (14-46) Monocytes (%) (Auto) 7.4% (4-12) 5.7% (4-12) Eosinophils (%) (Auto) 0.7% (0-5) 1.0% (0-5) Basophils (%) (Auto) 1.4% (0-3) 0.8% (0-3) Sodium Level 132mEq/L (134-144) Potassium Level 3.3mEq/L (3.5-5.2) Chloride Level 81mEq/L (97-108) Carbon Dioxide Level 35mmol/L (18-29) Blood Urea Nitrogen 59mg/dL (6-20) Creatinine 5.93mg/dL (0.76-1.27) Estimat Glomerular Filtration Rate 12mL/min (>59) Glucose Level 86mg/dL (60-99) Calcium Level 7.6mg/dL (8.5-10.1) Total Bilirubin 0.3mg/dL (0.0-1.2) Aspartate Amino Transf (AST/SGOT) 22U/L (0-50) Alanine Aminotransferase (ALT/SGPT) 14U/L (0-44) Alkaline Phosphatase 118U/L (25-150) Total Protein 6.9g/dL (6.4-8.4) Albumin 3.3g/dL (3.4-5.0) Result Diagram: 07/08/1681107/07/1624 X-Rays, CTs and MRIs PROCEDURE: US ABDOMEN INDICATIONS: arf,epigastric pain TECHNIQUE: Real-time scanning was performed of the abdominal and retroperitoneal organs, with image documentation. COMPARISON: [facility], US, US ABDOMEN, 03/17/2015, 8:39. FINDINGS: Liver length: 16.50 cm Gallbladder Wall Thickness: 2.40 mm CHD: Normal. CBD: 5.70 mm Spleen length: 12.17 cm Right kidney length: 9.97 cm Left kidney length: 11.08 cm Aorta(Proximal): Not well-seen. Aorta(Mid): 1.74 cm Aorta(Distal): 1.62 cm RCIA: Not well-seen. No LCIA: Not well-seen. Liver: Liver is diffusely increased in echogenicity. No focal hepatic abnormalities identified. Normal hepatic size. Gallbladder: Normal gallbladder. Biliary ducts: Intrahepatic bile ducts are non-dilated. Extrahepatic bile duct caliber is normal. Normal is 6-7 mm or less in diameter, or 10 mm or less post-cholecystectomy. Pancreas: Not well-seen. Spleen: Spleen is normal in size and homogeneous in echotexture. Kidneys: Kidneys are normal in size and there is increase in renal cortical echogenicity. No hydronephrosis or nephrolithiasis. No solid masses. Aorta: Visualized aorta is normal in caliber at less than 3 cm. Iliacs: Not well-seen. IVC: Intrahepatic inferior vena cava is patent. Miscellaneous: No free abdominal fluid. IMPRESSION: 1. Increased hepatic echogenicity noted likely related to fatty infiltration of the liver but other sources of hepatocellular disease cannot be excluded. Recommend clinical correlation. 2. Increased renal cortical echogenicity redemonstrated consistent with medical renal disease. Dictated by: Rafael Corado [facility] Interpreted: Hellen Gibbs MD on 07/07/2016 at 10:27 Transcribed by: JADON on 07/07/2016 at 10:28 PROCEDURE: CT ABDOMEN AND PELVIS WITHOUT CONTRAST ([id number]) INDICATIONS: N/V TECHNIQUE: After the administration of oral contrast, 5 mm thick sections acquired from the diaphragms to the symphysis. 5 mm coronal and sagittal reformats were performed. For radiation dose reduction, the following was used: automated exposure control, adjustment of mA and/or kV according to patient size. COMPARISON: [facility], CT, ABD/PELVIS W/O CON (PN), 04/13/2014, 11:48. FINDINGS: Image quality: Excellent. ABDOMEN: Lung bases: Consolidation is present within the left lower lobe. Solid organs: Liver and spleen are normal in size. Gallbladder surgically absent. Pancreas is normal in size. No adrenal nodules. Both kidneys are normal in size, without hydronephrosis or nephrolithiasis. Peritoneum and bowel: Bowel loops demonstrate normal wall thickness and caliber. No free fluid or air. Normal appendix. Possible postsurgical staple line in the left abdomen although recommend correlation to surgical history. Nodes and vessels: No retroperitoneal or mesenteric adenopathy by size criteria. Aorta and inferior vena cava are normal in size. Miscellaneous: No ventral hernias. PELVIS: Genitourinary: Bladder wall thickness is normal. Miscellaneous: No inguinal hernias or adenopathy. Bones: No suspicious bony lesions. Chronic rib deformities No vertebral body compression fractures. Probable physiologic wedging of a lower thoracic vertebral bodies IMPRESSION: Normal appendix. No acute abnormality. Dictated by: John Bear M.D. on 07/07/2016 at 21:19 Approved by: John Bear M.D. on 07/07/2016 at 21:24 Assessment & Plan Pedro Pablo Velazquez is a 30 year old male with Gastroparesis, history of recurrent pancreatitis, Chronic Kidney disease, EtOH abuse, depression, anxiety, polysubstance abuse and noncompliance presents to the [facility] emergency department via [employer] complaining of heroin withdrawal symptoms but workup showed significant Acute Kidney Injury. 1. Acute Kidney injury on Chronic kidney disease stage 3. Present on admission Likely prerenal with contraction alkalosis, severe hyponatremia and hypokalemia. Patient vomiting. Patient has a long history of renal issues mainly due to dehydration and previous imaging showed he has kidney disease. Patient not on any medications making interstitial nephritis or other intrinsic renal diseases. - continue IV fluids resuscitation - Urinalysis requested, looking for proteinuria and casts - consider imaging such as Renal ultrasound to rule out obstructive causes - consider Nephrology consult if no improvements overnight -Check abdominal ultrasound and trend BUN and creatinines. Looking at the previous past creatinines A go anywhere from 4.5 up to about 6 and BUNs anywhere from about 40-100 on previous checks. -BUN/Cr slightly improved today. - US reveals some hepatic and renal disease but no focal lesions # Recurrent N/v,acute,poa - Check CT scan abd/pelvis which returned with no acute abnormalities. We will progress to heart healthy carb-controlled diet. -We will also schedule IV Reglan prior to meals to see if this helps with possible gastroparesis and prevent further nausea vomiting. 2. Lactic acidosis. Present on admission Due to tissue hypoxia. Patient not complaining of any abdominal pain which is reassuring that he does not have bowel ischemia - trending levels till normal. This a.m.'s was normal. - continue IV fluids 3. Systemic Inflammatory response. Present on admission Source of infection is not identified. Prior history of Pancreatitis, a possible cause of SIRS - monitor closely - checking Lipase levels 4. Heroine Abuse. Patient's current nausea and vomiting could be related to Heroine withdrawal - monitor for withdrawal symptoms - consult rn social work for resources 5 Anemia, chronic. Normocytic secondary to Chronic disease. No bleeding noted 6. Depression and anxiety. - Ativan 1 mg PO tid PRN started 7. Chronic pain. - Tylenol and avoid NSAIDs due to renal disease - Acetaminophen as needed for mild pain/fever/headache - Bowel regimen as needed - Antiemetic as needed 8. Mild epigastric pain Lipase was normal. Check abdominal ultrasound. Patient admitted under inpatient status with expected length of stay > 2 midnights for severity of present symptoms, complexities of treatment plan and risk for adverse event . VTE Mechanical Devices: Intermittant Pneumatic CD Resuscitation Status: CPR: Attempt Resuscitation Time spent 30 minutes Yelitza Andersen MD Jul 08, 2016 08:42
[2016-07-08] MEDS ORDERED: MetoCLOpramide 5 mg/mL 2 mL Inj IVPUSH SCH (09:00)
[2016-07-08 09:05] VITALS: BP 107/67; PULSE 88; RESP 16; O2SAT 96
[2016-07-08] MEDS: LORazepam 1 mg Tablet PO PRN ×3 (10:34→19:30)
[2016-07-08 16:03] VITALS: BP 106/64; PULSE 86; RESP 16; O2SAT 99
--- NOTE | 2016-07-08 18:45 | NUR ---
ANXIETY/ COMPLIANCE WITH CARE P-Patient moderate anxiety, at times calling out, and wanting to leave AMA. Pulled out IV. I-Ativan and Librium given for anxiety. Patient informed if he leaves he goes back to group home via police. IV restarted. E- Patient at time sleeping and quiet, at other time quite "needy" and using call light. Patient has elected to stay, behavior contract in chart.
[2016-07-08] MEDS: MetoCLOpramide 5 mg/mL 2 mL Inj IVPUSH PRN (20:17)
[2016-07-08 20:40] VITALS: BP 112/73; PULSE 89; RESP 20; O2SAT 99
--- NOTE | 2016-07-09 01:53 | NUR ---
Mentation/ GI/ Anxiety Pt. was anxious during first part of shift. Did vomit after dinner. However, did tolerate snacks later on in the shift well. IV Reglan given, and seems to be effective. Ativan IV seems to be effective for anxiety. Pt. has been sleeping on and off. Will continue to monitor.
[2016-07-09] MEDS: 0.9% Sodium Chloride 1,000 ML IV SCH ×2 (03:58→18:59)
[2016-07-09] MEDS: MetoCLOpramide 5 mg/mL 2 mL Inj IVPUSH PRN ×3 (04:53→21:56)
[2016-07-09 07:03] LABS: BASOPHILS % (AUTO) 1.1 % (0-3); EOSINOPHILS % (AUTO) 3.5 % (0-5); MONOCYTES % (AUTO) 7.5 % (4-12); Mean Corpuscular Volume 88.1 fL (81-100); NEUTROPHILS % (AUTO) 61.5 % (40-74); Platelet Count 292 bil/L (150-400)
[2016-07-09] MEDS: LORazepam 1 mg Tablet PO PRN ×3 (08:40→21:56)
[2016-07-09 09:02] VITALS: BP 149/69; PULSE 115; RESP 18; O2SAT 98
--- NOTE | 2016-07-09 10:43 | PCM.PNMED ---
Subjective Date of Service Jul 09, 2016 Subjective - Pt seen and examined this morning. - c/o mild abdominal pain. Denies any new complaints. Exam Vital Signs Vital Sign - Last Date Time Temp Pulse Resp B/P Pulse Ox O2 Delivery O2 Flow Rate FiO2 07/09/16 09:02 36.7 115 18 149/69 98 Room Air Intake and Output 07/08/16 07/08/16 07/09/16 Cumulative From/Thru 15:00 23:00 07:00 07/05/16 17:44 - 07/09/16 06:55 Intake Total 100 ml 2466 ml 2461 ml 07931 ml Output Total 1450 ml 1700 ml 9625 ml Balance 100 ml 1016 ml 761 ml 6399 ml Intake Oral 1656 ml 1192 ml 8430 ml IV Total 100 ml 810 ml 1269 ml 7594 ml Output Urine Total 700 ml 850 ml 6725 ml Emesis 750 ml 850 ml 2900 ml # Voids 2 4 # Bowel Movements 0 0 0 Exam Constitutional: Young male in no acute distress Head: Normocephalic atraumatic Chest: Clear to auscultation, Normal respiratory effort, Cor: Regular rate and rhythm S1-S2 Abdomen: Soft non-tender, bowel sounds present Extremities: No pedal edema, No cyanosis IVs and Medications Medications Reviewed: Medications were reviewed in detail Lab and Diagnostics Result Diagram: 07/09/16 0553 07/09/16 0553 X-Rays, CTs and MRIs PROCEDURE: US ABDOMEN INDICATIONS: arf,epigastric pain TECHNIQUE: Real-time scanning was performed of the abdominal and retroperitoneal organs, with image documentation. COMPARISON: [facility], US, US ABDOMEN, 03/17/2015, 8:39. FINDINGS: Liver length: 16.50 cm Gallbladder Wall Thickness: 2.40 mm CHD: Normal. CBD: 5.70 mm Spleen length: 12.17 cm Right kidney length: 9.97 cm Left kidney length: 11.08 cm Aorta(Proximal): Not well-seen. Aorta(Mid): 1.74 cm Aorta(Distal): 1.62 cm RCIA: Not well-seen. No LCIA: Not well-seen. Liver: Liver is diffusely increased in echogenicity. No focal hepatic abnormalities identified. Normal hepatic size. Gallbladder: Normal gallbladder. Biliary ducts: Intrahepatic bile ducts are non-dilated. Extrahepatic bile duct caliber is normal. Normal is 6-7 mm or less in diameter, or 10 mm or less post-cholecystectomy. Pancreas: Not well-seen. Spleen: Spleen is normal in size and homogeneous in echotexture. Kidneys: Kidneys are normal in size and there is increase in renal cortical echogenicity. No hydronephrosis or nephrolithiasis. No solid masses. Aorta: Visualized aorta is normal in caliber at less than 3 cm. Iliacs: Not well-seen. IVC: Intrahepatic inferior vena cava is patent. Miscellaneous: No free abdominal fluid. IMPRESSION: 1. Increased hepatic echogenicity noted likely related to fatty infiltration of the liver but other sources of hepatocellular disease cannot be excluded. Recommend clinical correlation. 2. Increased renal cortical echogenicity redemonstrated consistent with medical renal disease. Dictated by: Rafael RIOS Interpreted: Hellen Gibbs MD on 07/07/2016 at 10:27 Transcribed by: JADON on 07/07/2016 at 10:28 PROCEDURE: CT ABDOMEN AND PELVIS WITHOUT CONTRAST ([id number]) INDICATIONS: N/V TECHNIQUE: After the administration of oral contrast, 5 mm thick sections acquired from the diaphragms to the symphysis. 5 mm coronal and sagittal reformats were performed. For radiation dose reduction, the following was used: automated exposure control, adjustment of mA and/or kV according to patient size. COMPARISON: [facility], CT, ABD/PELVIS W/O CON (PN), 04/13/2014, 11:48. FINDINGS: Image quality: Excellent. ABDOMEN: Lung bases: Consolidation is present within the left lower lobe. Solid organs: Liver and spleen are normal in size. Gallbladder surgically absent. Pancreas is normal in size. No adrenal nodules. Both kidneys are normal in size, without hydronephrosis or nephrolithiasis. Peritoneum and bowel: Bowel loops demonstrate normal wall thickness and caliber. No free fluid or air. Normal appendix. Possible postsurgical staple line in the left abdomen although recommend correlation to surgical history. Nodes and vessels: No retroperitoneal or mesenteric adenopathy by size criteria. Aorta and inferior vena cava are normal in size. Miscellaneous: No ventral hernias. PELVIS: Genitourinary: Bladder wall thickness is normal. Miscellaneous: No inguinal hernias or adenopathy. Bones: No suspicious bony lesions. Chronic rib deformities No vertebral body compression fractures. Probable physiologic wedging of a lower thoracic vertebral bodies IMPRESSION: Normal appendix. No acute abnormality. Dictated by: John Bear M.D. on 07/07/2016 at 21:19 Approved by: John Bear M.D. on 07/07/2016 at 21:24 Assessment & Plan 30 year old male with Gastroparesis, history of recurrent pancreatitis, Chronic Kidney disease, EtOH abuse, depression, anxiety, polysubstance abuse and noncompliance presents to the [facility] emergency department via [employer] complaining of heroin withdrawal symptoms but workup showed significant Acute Kidney Injury. 1. Acute Kidney injury on Chronic kidney disease stage 3. Present on admission Likely prerenal with contraction alkalosis, severe hyponatremia and hypokalemia due to vomiting. Patient has a long history of renal issues mainly due to dehydration and previous imaging showed he has kidney disease. Patient not on any medications making interstitial nephritis or other intrinsic renal diseases. - continue IV fluids resuscitation - BUN/Cr improving.. - US reveals some hepatic and renal disease but no focal lesions # Recurrent N/v,acute,poa - CT scan abd/pelvis which returned with no acute abnormalities. - We will progress to heart healthy carb-controlled diet. - IV Reglan prior to meals for possible gastroparesis and prevent further nausea vomiting. 2. Lactic acidosis. Present on admission - Due to tissue hypoxia. Patient not complaining of any abdominal pain which is reassuring that he does not have bowel ischemia - Now resolved. - continue IV fluids 3. Systemic Inflammatory response. Present on admission Source of infection is not identified. Prior history of Pancreatitis, a possible cause of SIRS - monitor closely - Lipase: normal 4. Heroine Abuse. Patient's current nausea and vomiting could be related to Heroine withdrawal - monitor for withdrawal symptoms - consult social insurance adviser for resources 5 Anemia, chronic. Normocytic secondary to Chronic disease. No bleeding noted 6. Depression and anxiety. - Ativan 1 mg PO tid PRN started 7. Chronic pain. - Tylenol and avoid NSAIDs due to renal disease - Acetaminophen as needed for mild pain/fever/headache - Bowel regimen as needed - Antiemetic as needed 8. Mild epigastric pain Lipase was normal. VTE Mechanical Devices: Intermittant Pneumatic CD Resuscitation Status: CPR: Attempt Resuscitation Francois Hicks MD Jul 09, 2016 10:43
[2016-07-09 14:27] VITALS: BP 136/80; PULSE 110; RESP 18; O2SAT 98
--- NOTE | 2016-07-09 17:42 | NUR ---
Behavior: Pt alternating between being belligerent/yelling down the jack and being very apologetic. Pt removed his IV, discussed the importance of keeping IV in, "It's not like I was trying to take it out." Requesting frequent snacks/drinks from nursing staff and dietary staff, Kitchen called to make sure that it's okay for pt to be eating so much. Care ongoing.
[2016-07-09 21:34] VITALS: BP 95/61; PULSE 99; RESP 17; O2SAT 94
[2016-07-09 23:44] VITALS: BP 113/76
[2016-07-10] MEDS: MetoCLOpramide 5 mg/mL 2 mL Inj IVPUSH PRN ×3 (03:33→20:02)
[2016-07-10 04:38] VITALS: BP 103/65; PULSE 91; RESP 16; O2SAT 96
[2016-07-10] MEDS: 0.9% Sodium Chloride 1,000 ML IV SCH ×4 (04:41→22:09)
--- NOTE | 2016-07-10 07:53 | NUR ---
Sleep Patient complaining that he hasn't been able to sleep for several days. Two attempts were made to page the night hospitalist, but no response was given. Patient continues to voice concerns over lack of sleep. Patient Alert and Oriented x3. Room air. Up independent to bathroom.
[2016-07-10 08:12] LABS: BASOPHILS % (AUTO) 1.4 % (0-3); EOSINOPHILS % (AUTO) 5.2 % (0-5); MONOCYTES % (AUTO) 10.9 % (4-12); Mean Corpuscular Hemoglobin 28.7 pg (27.0-35.0); Mean Corpuscular Volume 89.9 fL (81-100); NEUTROPHILS % (AUTO) 51.5 % (40-74); Platelet Count 300 bil/L (150-400)
--- NOTE | 2016-07-10 09:24 | PCM.PNMED ---
Subjective Date of Service Jul 10, 2016 Subjective - Pt seen and examined this morning. - c/o generalized body ache. Exam Vital Signs Vital Sign - Last Date Time Temp Pulse Resp B/P Pulse Ox O2 Delivery O2 Flow Rate FiO2 07/10/16 04:38 36.8 91 16 103/65 96 Room Air Intake and Output 07/09/16 07/09/16 07/10/16 Cumulative From/Thru 15:00 23:00 07:00 07/05/16 17:44 - 07/10/16 06:56 Intake Total 3860 ml 3351 ml 66494 ml Output Total 500 ml 400 ml 26313 ml Balance 3360 ml 2951 ml 62604 ml Intake Oral 3320 ml 1508 ml 42652 ml IV Total 540 ml 1843 ml 9977 ml Output Urine Total 500 ml 400 ml 7625 ml Emesis 2900 ml # Voids 4 9 17 # Bowel Movements 0 Exam Constitutional: Young male in no acute distress Head: Normocephalic atraumatic Chest: Clear to auscultation, Normal respiratory effort, Cor: Regular rate and rhythm S1-S2 Abdomen: Soft non-tender, bowel sounds present Extremities: No pedal edema, No cyanosis IVs and Medications Medications Reviewed: Medications were reviewed in detail Lab and Diagnostics Result Diagram: 07/10/16 0755 07/10/16 0755 X-Rays, CTs and MRIs PROCEDURE: US ABDOMEN INDICATIONS: arf,epigastric pain TECHNIQUE: Real-time scanning was performed of the abdominal and retroperitoneal organs, with image documentation. COMPARISON: [facility], US, US ABDOMEN, 03/17/2015, 8:39. FINDINGS: Liver length: 16.50 cm Gallbladder Wall Thickness: 2.40 mm CHD: Normal. CBD: 5.70 mm Spleen length: 12.17 cm Right kidney length: 9.97 cm Left kidney length: 11.08 cm Aorta(Proximal): Not well-seen. Aorta(Mid): 1.74 cm Aorta(Distal): 1.62 cm RCIA: Not well-seen. No LCIA: Not well-seen. Liver: Liver is diffusely increased in echogenicity. No focal hepatic abnormalities identified. Normal hepatic size. Gallbladder: Normal gallbladder. Biliary ducts: Intrahepatic bile ducts are non-dilated. Extrahepatic bile duct caliber is normal. Normal is 6-7 mm or less in diameter, or 10 mm or less post-cholecystectomy. Pancreas: Not well-seen. Spleen: Spleen is normal in size and homogeneous in echotexture. Kidneys: Kidneys are normal in size and there is increase in renal cortical echogenicity. No hydronephrosis or nephrolithiasis. No solid masses. Aorta: Visualized aorta is normal in caliber at less than 3 cm. Iliacs: Not well-seen. IVC: Intrahepatic inferior vena cava is patent. Miscellaneous: No free abdominal fluid. IMPRESSION: 1. Increased hepatic echogenicity noted likely related to fatty infiltration of the liver but other sources of hepatocellular disease cannot be excluded. Recommend clinical correlation. 2. Increased renal cortical echogenicity redemonstrated consistent with medical renal disease. Dictated by: Rafael RIOS Interpreted: Hellen Gibbs MD on 07/07/2016 at 10:27 Transcribed by: JADON on 07/07/2016 at 10:28 PROCEDURE: CT ABDOMEN AND PELVIS WITHOUT CONTRAST ([id number]) INDICATIONS: N/V TECHNIQUE: After the administration of oral contrast, 5 mm thick sections acquired from the diaphragms to the symphysis. 5 mm coronal and sagittal reformats were performed. For radiation dose reduction, the following was used: automated exposure control, adjustment of mA and/or kV according to patient size. COMPARISON: [facility], CT, ABD/PELVIS W/O CON (PN), 04/13/2014, 11:48. FINDINGS: Image quality: Excellent. ABDOMEN: Lung bases: Consolidation is present within the left lower lobe. Solid organs: Liver and spleen are normal in size. Gallbladder surgically absent. Pancreas is normal in size. No adrenal nodules. Both kidneys are normal in size, without hydronephrosis or nephrolithiasis. Peritoneum and bowel: Bowel loops demonstrate normal wall thickness and caliber. No free fluid or air. Normal appendix. Possible postsurgical staple line in the left abdomen although recommend correlation to surgical history. Nodes and vessels: No retroperitoneal or mesenteric adenopathy by size criteria. Aorta and inferior vena cava are normal in size. Miscellaneous: No ventral hernias. PELVIS: Genitourinary: Bladder wall thickness is normal. Miscellaneous: No inguinal hernias or adenopathy. Bones: No suspicious bony lesions. Chronic rib deformities No vertebral body compression fractures. Probable physiologic wedging of a lower thoracic vertebral bodies IMPRESSION: Normal appendix. No acute abnormality. Dictated by: John Bear M.D. on 07/07/2016 at 21:19 Approved by: John Bear M.D. on 07/07/2016 at 21:24 Assessment & Plan 30 year old male with Gastroparesis, history of recurrent pancreatitis, Chronic Kidney disease, EtOH abuse, depression, anxiety, polysubstance abuse and noncompliance presents to the [facility] emergency department via [facility] complaining of heroin withdrawal symptoms but workup showed significant Acute Kidney Injury. Acute Kidney injury on Chronic kidney disease stage 3. Present on admission - Likely prerenal with contraction alkalosis, severe hyponatremia and hypokalemia due to vomiting. Patient has a long history of renal issues mainly due to dehydration and previous imaging showed he has kidney disease. Patient not on any medications making interstitial nephritis or other intrinsic renal diseases. - continue IV fluids resuscitation - Creatinine trending down 4.24 <-- 4.75 <-- 5.55 <--- 5.93 <--- 6.65 - US reveals some hepatic and renal disease but no focal lesions Recurrent N/v,acute,poa - Now improving - tolerating full diet. - CT scan abd/pelvis which returned with no acute abnormalities. - IV Reglan prior to meals for possible gastroparesis and prevent further nausea vomiting. Lactic acidosis. Present on admission - Due to tissue hypoxia. Patient not complaining of any abdominal pain which is reassuring that he does not have bowel ischemia - Now resolved. - continue IV fluids Systemic Inflammatory response. Present on admission Source of infection is not identified. Prior history of Pancreatitis, a possible cause of SIRS - monitor closely - Lipase: normal Heroine Abuse. Patient's current nausea and vomiting could be related to Heroine withdrawal - monitor for withdrawal symptoms - consult social media content specialist for resources Anemia, chronic. Normocytic secondary to Chronic disease. No bleeding noted Depression and anxiety. - Ativan 1 mg PO tid PRN started Chronic pain. - Tylenol and avoid NSAIDs due to renal disease - Acetaminophen as needed for mild pain/fever/headache - Bowel regimen as needed - Antiemetic as needed Dispo: He is currently incarcerated. Likely discharge in 1 - 2 days pending clinical course. Pain Evaluation: Adequate Pain Control VTE Mechanical Devices: Intermittant Pneumatic CD Resuscitation Status: CPR: Attempt Resuscitation Francois Hicks MD Jul 10, 2016 09:24
--- NOTE | 2016-07-10 14:25 | NUR ---
Social Work: Continued d/c planning Data: Pt is on day 3 of hospitalization. EMR reviewed. No d/c planning needs anticipated at this time. SYSTEMS SOFTWARE SPECIALIST will continue to follow if needs arise. Assessment: Pt who is independent at baseline, currently incarcerated. Plan: Pt will return to incarceration or home via POV depending on incarceration status. No d/c planning needs anticipated at this time. SYSTEMS SOFTWARE SPECIALIST will continue to follow if needs arise. VIRI Garvey
[2016-07-10 15:30] VITALS: BP 113/72; PULSE 97; RESP 19; O2SAT 97
[2016-07-10 19:40] VITALS: BP 107/67; PULSE 109; RESP 18; O2SAT 97
--- NOTE | 2016-07-10 19:43 | NUR ---
Behavior Patient became very agitated this afternoon, cursing at staff with very foul language. Pt informed this was not appropriate behavior and that he was disturbing the other patients who are sick as well . Patient stated " I do not give a shit about the other sick people". Patient also was calling kitchen and cursing at them so patient switched to non select per kitchen request. Pt informed again about behavior but declined to listen.
[2016-07-11 04:11] VITALS: BP 111/69; PULSE 94; RESP 20; O2SAT 98
[2016-07-11] MEDS: 0.9% Sodium Chloride 1,000 ML IV SCH ×2 (05:07→11:59)
--- NOTE | 2016-07-11 07:41 | NUR ---
Appetite Patient stated he was very hungry this shift. Asked for toast with jelly twice in addition to several cups of jello and juice. Patient was appropriate and calm throughout shift. Patient's pain was a 4/10. patient asked for Ativan, and Librium when available. Patient A&OX3.
[2016-07-11] MEDS: MetoCLOpramide 5 mg/mL 2 mL Inj IVPUSH PRN (09:10)
[2016-07-11] MEDS: LORazepam 1 mg Tablet PO PRN (09:20)
[2016-07-11 13:02] VITALS: BP 126/87; PULSE 110; RESP 20; O2SAT 98
--- NOTE | 2016-07-11 14:15 | PCM.DC.MED ---
Discharge Summary Date of Service Jul 11, 2016 Dates of Hospitalization Date of Hospital Admission Jul 05, 2016 at 21:08 Date of Discharge: Jul 11, 2016 Providers: Admitting Physician: Robb Landaverde MD Primary Care Physician: Nopabe Attending Physician: Robb Landaverde MD Diagnosis at Time of Discharge Diagnosis at Time of Discharge Nausea and vomiting secondary to gastroparesis Consultations None Procedures XRay, CTs & MRIs PROCEDURE: US ABDOMEN Liver: Liver is diffusely increased in echogenicity. No focal hepatic abnormalities identified. Normal hepatic size. Gallbladder: Normal gallbladder. Biliary ducts: Intrahepatic bile ducts are non-dilated. Extrahepatic bile duct caliber is normal. Normal is 6-7 mm or less in diameter, or 10 mm or less post-cholecystectomy. Pancreas: Not well-seen. Spleen: Spleen is normal in size and homogeneous in echotexture. Kidneys: Kidneys are normal in size and there is increase in renal cortical echogenicity. No hydronephrosis or nephrolithiasis. No solid masses. Aorta: Visualized aorta is normal in caliber at less than 3 cm. Iliacs: Not well-seen. IVC: Intrahepatic inferior vena cava is patent. Miscellaneous: No free abdominal fluid. IMPRESSION: 1. Increased hepatic echogenicity noted likely related to fatty infiltration of the liver but other sources of hepatocellular disease cannot be excluded. Recommend clinical correlation. 2. Increased renal cortical echogenicity redemonstrated consistent with medical renal disease. Dictated by: Rafael Corado [facility] Interpreted: Hellen Gibbs MD on 07/07/2016 at 10:27 Transcribed by: JADON on 07/07/2016 at 10:28 PROCEDURE: CT ABDOMEN AND PELVIS WITHOUT CONTRAST ([id number]) ABDOMEN: Lung bases: Consolidation is present within the left lower lobe. Solid organs: Liver and spleen are normal in size. Gallbladder surgically absent. Pancreas is normal in size. No adrenal nodules. Both kidneys are normal in size, without hydronephrosis or nephrolithiasis. Peritoneum and bowel: Bowel loops demonstrate normal wall thickness and caliber. No free fluid or air. Normal appendix. Possible postsurgical staple line in the left abdomen although recommend correlation to surgical history. Nodes and vessels: No retroperitoneal or mesenteric adenopathy by size criteria. Aorta and inferior vena cava are normal in size. Miscellaneous: No ventral hernias. PELVIS: Genitourinary: Bladder wall thickness is normal. Miscellaneous: No inguinal hernias or adenopathy. Bones: No suspicious bony lesions. Chronic rib deformities No vertebral body compression fractures. Probable physiologic wedging of a lower thoracic vertebral bodies IMPRESSION: Normal appendix. No acute abnormality. Dictated by: John Bear M.D. on 07/07/2016 at 21:19 Approved by: John Bear M.D. on 07/07/2016 at 21:24 Brief History Noncompliant 30 year old male with Gastroparesis, history of recurrent pancreatitis, Chronic Kidney disease, EtOH abuse, depression, anxiety, polysubstance abuse and noncompliance presents to the [facility] emergency department via [facility] complaining of heroin withdrawal symptoms while at the custodial Hospital Course 30 year old male with Gastroparesis, history of recurrent pancreatitis, Chronic Kidney disease, EtOH abuse, depression, anxiety, polysubstance abuse and noncompliance presents to the [facility] emergency department via [facility] complaining of heroin withdrawal symptoms but workup showed significant Acute Kidney Injury. Patient was hydrated. Nausea and vomiting subsided as did withdrawal and I met him on the seventh hospital day and he was back to baseline level of creatinine and stable for discharge. So I discharged him given that he came in on no medications I also discharged him back to custodial with no medications however there are a number might benefit from such as duloxetine, gabapentin that might help with chronic pain and addiction. Acute Kidney injury on Chronic kidney disease stage 4-5. Present on admission - Likely prerenal with contraction alkalosis, severe hyponatremia and hypokalemia due to vomiting. Patient has a long history of renal issues mainly due to dehydration and previous imaging showed he has kidney disease. Patient not on any medications making interstitial nephritis or other intrinsic renal diseases. - continue IV fluids resuscitation - Creatinine trending down 4.24 <-- 4.75 <-- 5.55 <--- 5.93 <--- 6.65 - US reveals some hepatic and renal disease but no focal lesions Recurrent N/v,acute,poa-resolved by the time I met him 07/11 - Now improving - tolerating full diet. - CT scan abd/pelvis which returned with no acute abnormalities. - IV Reglan prior to meals for possible gastroparesis and prevent further nausea vomiting. Lactic acidosis. Present on admission- resolved by the time I met him 07/11 - Due to tissue hypoxia. Patient not complaining of any abdominal pain which is reassuring that he does not have bowel ischemia - Now resolved. - continue IV fluids Systemic Inflammatory response. Present on admission totally resolved by the time I met him 07/11 Source of infection is not identified. Prior history of Pancreatitis, a possible cause of SIRS - monitor closely - Lipase: normal Heroine Abuse. He is through his withdrawal 07/11 although gabapentin and clonidine might help with compliance along with Topamax Patient's current nausea and vomiting could be related to Heroine withdrawal - monitor for withdrawal symptoms - consult social staff worker for resources Anemia, chronic.- Hemoglobin stable around 8.2 07/11 Normocytic secondary to Chronic disease. No bleeding noted Depression and anxiety.-Patient discharge with no meds he probably would benefit from an a dual agent with symptoms for chronic pain as well Chronic pain.-Would benefit from something like duloxetine/gabapentin discharge with nothing - Tylenol and avoid NSAIDs due to renal disease - Acetaminophen as needed for mild pain/fever/headache Exam Vital Signs (Last) Date Time Temp Pulse Resp B/P Pulse Ox O2 Delivery O2 Flow Rate FiO2 07/11/16 13:02 36.9 110 20 126/87 98 Room Air Exam Gen.- A+ responsive no apparent distress. Thin male quietly sitting up in chair Eyes- open conjunctiva clear, pupils equal nonicteric ENT- ears normal, nose normal Neck- supple/trach midline CVS-normal rate Lungs-normal rate no accessory muscle usage GI-flat Musc- moving 4 no obvious deformity Neuro- cranial nerves II through XII intact to gross examination, nonfocal Skin- warm and dry, no rashes/lesions/wounds noted Psych-patient was much silent/withdrawn and started to wonder whether he was mute until he actually said answered a couple questions and spoke out loud, Looking at his eyes he seemed to be paying attention and understanding what I was saying but had virtually nothing to say until I discussed this discharge and his kidney function which point in time he was able to tell me his kidneys functioned at perhaps 10% on a good day and that this was not a new finding. Test 07/05/16 18:58 07/05/16 22:23 07/05/16 22:28 07/10/16 07:55 Lipase 20U/L (13-60) Lactic Acid Level 0.7mmol/L (0.4-2.0) Urine Color Yellow (YELLOW) Urine Appearance Clear (CLEAR,HAZY) Urine pH 8.5 (5.0-8.0) Urine Specific [place] 1.010 (1.003-1.035) Urine Protein 30mg/dL (NEG,TRACE) Urine Glucose (UA) Negativemg/dL (NEGATIVE) Urine Ketones Negativemg/dL (NEGATIVE) Urine Occult Blood Trace (NEGATIVE) Urine Nitrite Negative (NEGATIVE) Urine Bilirubin Negative (NEGATIVE) Urine Urobilinogen Normalmg/dL (NORMAL) Urine Leukocyte Esterase Negative (NEGATIVE) Urine RBC 0-2/hpf (0-2) Urine WBC 0-5/hpf (0-5) Urine Epithelial Cells Occasional/hpf (NONE-MOD) Urine Crystals None seen (NONE SEEN) Urine Bacteria Few/hpf (NONE-FEW) Urine Hyaline Casts None/lpf (NONE) Urine Granular Casts None seen (NONE SEEN) Urine Waxy Casts None seen (NONE SEEN) Urine Red Blood Cell Casts None seen (NONE SEEN) Urine White Blood Cell Casts None seen (NONE SEEN) Urine Mucus None seen (None Seen) Urine Trichomonas None seen (NONE SEEN) Urine Yeast None (NONE SEEN) Urinalysis Comment None Urine Culture Reflexed Not indicated White Blood Count 6.3th/mm3 (3.8-10.1) Red Blood Count 2.86mil/mm3 (4.40-5.80) Hemoglobin 8.2g/dL (13.8-17.2) Hematocrit 25.7% (41.0-50.0) Mean Corpuscular Volume 89.9fL (81-100) Mean Corpuscular Hemoglobin 28.7pg (27.0-35.0) Mean Corpuscular Hemoglobin Concent 31.9% (32.0-37.0) Red Cell Distribution Width 13.6% (12.3-15.4) Platelet Count 300bil/L (150-400) Neutrophils (%) (Auto) 51.5% (40-74) Lymphocytes (%) (Auto) 30.5% (14-46) Monocytes (%) (Auto) 10.9% (4-12) Eosinophils (%) (Auto) 5.2% (0-5) Basophils (%) (Auto) 1.4% (0-3) Sodium Level 140mEq/L (134-144) Potassium Level 3.4mEq/L (3.5-5.2) Chloride Level 95mEq/L (97-108) Carbon Dioxide Level 30mmol/L (18-29) Blood Urea Nitrogen 38mg/dL (6-20) Creatinine 4.24mg/dL (0.76-1.27) Estimat Glomerular Filtration Rate 17mL/min (>59) Glucose Level 79mg/dL (60-99) Calcium Level 7.2mg/dL (8.5-10.1) Total Bilirubin 0.2mg/dL (0.0-1.2) Aspartate Amino Transf (AST/SGOT) 14U/L (0-50) Alanine Aminotransferase (ALT/SGPT) 11U/L (0-44) Alkaline Phosphatase 92U/L (25-150) Total Protein 6.0g/dL (6.4-8.4) Albumin 3.0g/dL (3.4-5.0) Discharge Medications No Active Prescriptions or Reported Meds Followup Plan Disposition: Patient is being discharged back to independent living I believe that would probably be to custodial and his instant. Follow-up plan If he chooses he should go see a physician Discharge Diet: No restrictions Discharge Activity: No restrictions Follow-up with PCP in: 1 week Time spent Greater than 30 minutes Donis Jackson MD Jul 11, 2016 14:15 Alanine Aminotransferase (ALT/SGPT) 11U/L (0-44) Alkaline Phosphatase 92U/L (25-150) Total Protein 6.0g/dL (6.4-8.4) Albumin 3.0g/dL (3.4-5.0) Discharge Medications No Active Prescriptions or Reported Meds Followup Plan Discharge Diet: No restrictions Discharge Activity: No restrictions Follow-up with PCP in: 1 week Donis Jackson MD Jul 11, 2016 14:15
--- NOTE | 2016-07-11 15:57 | NUR ---
Discharge Pt discharged to home - pt stating he was going to walk to his "auntie's house" who "lives right up there." Stated he could not remember any phone numbers to call for a ride. A&Ox3, ELIZONDO, IV dc'd intact, Stating pain when asked but tolerating - not taking anything for pain. No scripts given. CareNotes and Instructions provided on dc dx and how to manage with poor kidney fx at baseline. No questions/concerns at dc. All personal belongings in hand. Pt walked off unit at 1540.
--- NOTE | 2016-07-11 16:10 | NUR ---
Social work Discharge: Order for discharge acknowledged. Plan is home with significant other in [facility]. Patient followed by [facility] program. No anticipated discharge needs. Patient independent at baseline. SW to follow as needs arise PLAN: Home with SO. [facility] program patient. Carlos MEREDITH
== END 2016-07-11 15:42 | disposition home or self-care (01) | DRG 460 ==
LOC: SED 17:40 → OSC 21:08
PROVIDERS: ADMIT Hospitalist; ATTEND Hospitalist
DX: N17.9 Acute kidney failure, unspecified (principal); E87.2 Acidosis; E87.1 Hypo-osmolality and hyponatremia; F11.23 Opioid dependence with withdrawal; K31.84 Gastroparesis; E86.0 Dehydration; E87.6 Hypokalemia; N18.4 Chronic kidney disease, stage 4 (severe); F32.9 Major depressive disorder, single episode, unspecified; F10.10 Alcohol abuse, uncomplicated; Z88.0 Allergy status to penicillin; Z91.19 Patient's noncompliance with other medical treatment and regimen

== ENCOUNTER 2016-11-16 20:55 | Inpatient (IN) | payer OTHER, MEDICAID ==
[~2016-11-16] VITALS: Ht 167.6 cm; Wt 74.1 kg
[2016-11-16 22:47] VITALS: BP 134/84; PULSE 103; RESP 16; O2SAT 100
[2016-11-16] MEDS ORDERED: Alum-Mag Hydrox-Simeth 30 mL Suspension PO PRN (23:15)
[2016-11-16] MEDS ORDERED: Polyethylene Glycol (PEG) 17 Gm Powder PO PRN (23:15)
[2016-11-16] MEDS ORDERED: cloNIDine 0.1 mg Tablet PO PRN (23:15)
[2016-11-16] MEDS ORDERED: Ondansetron 2 mg/mL 2 mL Inj IVPUSH PRN (23:15)
[2016-11-17] VITALS (7 sets, daily range): BP systolic 119–150; BP diastolic 42–93; PULSE 84–93; RESP 14–20; O2SAT 100
[2016-11-17] MEDS ORDERED: Heparin 5,000 Unit/mL Inj SUBQ SCH (00:30)
--- NOTE | 2016-11-17 01:03 | NUR ---
DIRECT ADMIT Pt arrived on unit #[id number] from [facility] via EMT with all personal belongings. Able to transfer self to bed. VSS. No complaints of n/v, pain or discomfort. Oriented to room, hospital/fall policy and call light. Allergy sticker placed on armband. Bed locked, low position. Non slip socks and SBA for safety. Denies chest pain or SOB. Pt poor historian unable to complete home medication list. Contact precautions r/o MRSA. No significant skin issues. Call light within reach, using appropriately. Frequent rounding in place. Pleasant and cooperative with care.
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
--- NOTE | 2016-11-17 02:32 | ABG ---
DateTimeAnalyzed 02:25:56 -_ pH ____7.278 - 7.350 7.450 pCO2 ___34.7__ -mmHg 35.0 45.0 pO2 101 -mmHg 69.0 116 HCO3- ___16.2__ -mmol/L 22.0 26.0 ABE ___-9.7__ -mmol/L tHb ____7.0__ -g/dL O2Hb ___96.5__ -% COHb ____1.0__ -% 1.5 MetHb ____1.1__ -% sO2 ___98.6__ -% FIO2 ___21.0__ -% Drawn By MD - Date/Time Notified____ 02:31:00 -_ Notified By MD - Notified Whom DR MOSS - K+ ____4.5__ -mmol/L tO2 ____9.7__ -Vol% Mason test _Positive -
[2016-11-17] MEDS ORDERED: 0.9% Sodium Chloride 250 ML IV STA (03:09)
[2016-11-17] MEDS ORDERED: Pantoprazole 4 mg/mL 10 mL Inj IVPUSH SCH (07:30)
[2016-11-17 09:14] LABS: BASOPHILS % (AUTO) 0.9 % (0-3); EOSINOPHILS % (AUTO) 3.3 % (0-5); MONOCYTES % (AUTO) 9.2 % (4-12); Mean Corpuscular Volume 95.1 fL (81-100); NEUTROPHILS % (AUTO) 65.2 % (40-74); Platelet Count 259 bil/L (150-400)
[2016-11-17 10:22] LABS: APPEARANCE,URINE HAZY (CLEAR,HAZY); COLOR,URINE STRAW (YELLOW); OCCULT BLOOD,URINE TRACE (NEGATIVE); PH,URINE 6.5 (5.0-8.0); UROBILINOGEN,URINE NORMAL (NORMAL)
--- NOTE | 2016-11-17 13:55 | NUR ---
Social Work: [facility] [employer] informed by surgical services coordinator that pt left [facility]. VIRI Garvey
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
--- NOTE | 2016-11-18 01:18 | PCM.DC.MED ---
Discharge Summary Date of Service Nov 17, 2016 Dates of Hospitalization Date of Hospital Admission Nov 16, 2016 at 22:22 Date of Discharge: Nov 17, 2016 Providers: Admitting Physician: Robb Landaverde MD Primary Care Physician: Nopcp Attending Physician: Robb Landaverde MD Brief History Patient is a 31-year-old male with medical history significant for DVT on Coumadin, PUD with GI bleed, and EtOH abuse transferred from [place] overnight, admitted for acute anemia possible GI bleed and hyperkalemia in the setting of CKD stage IV. Nephrology was consulted for evaluation of possible emergent dialysis. He initially presented to [facility] chief complaint of "not right ". Patient states of possible vomiting up blood the prior day. Details remains fuzzy given that he blacked out several times over the course of 24 hours. Patient endorse EtOH use, in addition to heroin and methamphetamines for the past 2 days. Last drink was 11/16/2016. Labs on admission at [place] was significant for INR 1.9, hemoglobin of 7.7, BUN/creatinine 56/3.4, potassium of 5.3, and bicarbonate 13 prior to transfer. He currently denies any nausea, vomiting or diarrhea. No abdominal pain or back pain. Further denies any fevers chills or night sweats. Patient was recently seen by nephrology team at [facility] for chronic kidney disease secondary to repeated JASON. Management would be supportive, however emphasize that he may need dialysis in the near future. Chart review showed that patient has passed history of multiple JASON. He was admitted for various diagnoses including hypovolemia/vomiting, GI bleed, MSSA bacteremia, recurrent pancreatitis, and seizures in the past. Recent US abdomen (07/07/2016) showed increased renal cortical echogenicity, however no hydronephrosis, nephrolithiasis, nor solid masses. Past serology DONYA, c-ANCA, CO 3 AB, atypical p-ANCA, p-ANCA antibody, double-stranded DNA AB, glomerular basement membrane AB, complement C3/C4 all unremarkable, as are Hepatitis panel and HIV. The patient was admitted to the hospitalist service. Hospital Course 31-year-old male with cough came medical history including chronic kidney disease, possible end-stage at this point, history of PEs and DVTs on anticoagulation, polysubstance abuse with recent use, alcohol use, multiple abdominal surgeries, as to the ER with hematemesis, found to be anemic, substantially elevated creatinine, hyperkalemia, hypermagnesemia. Acute worsening of chronic kidney disease, present on admission, treatment initiated Nephrology consulted, excepting case, evaluation for need for dialysis tomorrow morning. Renal diet when cleared by GI, nothing by mouth at this time. Avoid large quantities of IV fluid Acute GI bleed, present on admission, evaluation ongoing Possibly Ann Marie-Knapp, possible ulcer, has not occurred or been witnessed since being in the ER Avoid gastric irritant medications Pantoprazole 40 mg IV twice a day, until cleared by GI Currently NPO status Trending H&H Q8h, but if increased bleeding episodes, consider shorter intervals Transfuse if Hgb <7 recommend GI Consult given his complicated abdominal surgery history, gastroparesis, and being on blood thinners. Acute on chronic anemia, present on admission, evaluation ongoing Hemoglobin 7.7. Reportedly guaiac was negative at [place] repeat Recheck H&H Crossmatch 2 units Acute anion gap, present on admission, evaluation ongoing Most likely metabolic acidosis from uremia, from chronic kidney failure. An ion gap of 18 ABG ordered Acute hyperkalemia, present on admission, evaluation ongoing Most likely secondary to ckd Nephrology consultation as above Repeat labs in the morning Acute hypermagnesemia, present on admission, evaluation ongoing Most likely secondary to renal failure 2.7 at [facility] emergency department Nephrology consultation as above Recheck with a.m. labs History of pulmonary embolism and DVT, POA, stable On warfarin and Lovenox INR 1.9 Warfarin dosed by pharmacy Hold for decreasing H&H Ongoing polysubstance abuse, POA, active Last use meth and heroin day before presentation as well as marijuana and alcohol. Social work consult Clonidine 3 times a day as needed for withdrawal symptoms Chronic tobacco abuse, POA, active Tobacco cessation education Transdermal nicotine patches every 24 hours when necessary DVD prophylaxis: Patient is on warfarin dosed by pharmacy GI prophylaxis pantoprazole IV as above Pain management, avoid opioids if possible secondary to substance abuse, Tylenol IV and by mouth. Patient admitted under inpatient status with expected length of stay > 2 midnights for severity of present symptoms, complexities of treatment plan and risk for adverse events CODE STATUS: Full code Disposition: The patient left AGAINST MEDICAL ADVICE before I could see him this morning. He left before his blood transfusion was even complete. The nurse tried everything she could to get him to stay, however he refused and left anyway. Exam Vital Signs (Last) Date Time Temp Pulse Resp B/P Pulse Ox O2 Delivery O2 Flow Rate FiO2 11/17/16 11:40 36.7 90 16 150/93 11/17/16 09:20 100 Room Air Exam The patient left AGAINST MEDICAL ADVICE before I could examine him. Test 11/17/16 02:30 11/17/16 08:50 11/17/16 09:59 Hold Gaston Top Tube Received (Received) White Blood Count 5.5th/mm3 (3.8-10.1) Red Blood Count 2.87mil/mm3 (4.40-5.80) Hemoglobin 8.6g/dL (13.8-17.2) Hematocrit 27.3% (41.0-50.0) Mean Corpuscular Volume 95.1fL (81-100) Mean Corpuscular Hemoglobin 30.0pg (27.0-35.0) Mean Corpuscular Hemoglobin Concent 31.5% (32.0-37.0) Red Cell Distribution Width 15.8% (12.3-15.4) Platelet Count 259bil/L (150-400) Neutrophils (%) (Auto) 65.2% (40-74) Lymphocytes (%) (Auto) 21.2% (14-46) Monocytes (%) (Auto) 9.2% (4-12) Eosinophils (%) (Auto) 3.3% (0-5) Basophils (%) (Auto) 0.9% (0-3) Sodium Level 138mEq/L (134-144) Potassium Level 5.3mEq/L (3.5-5.2) Chloride Level 112mEq/L (97-108) Carbon Dioxide Level 15mmol/L (18-29) Blood Urea Nitrogen 50mg/dL (6-20) Creatinine 3.30mg/dL (0.76-1.27) Estimat Glomerular Filtration Rate 23mL/min (>59) Glucose Level 90mg/dL (60-99) Calcium Level 8.0mg/dL (8.5-10.1) Iron Level 63ug/dL (35-150) Total Iron Binding Capacity 210ug/dL (250-450) Percent Iron Saturation 30%sat (15-50) Unsaturated Iron Binding 147.0ug/dL Total Bilirubin 0.3mg/dL (0.0-1.2) Aspartate Amino Transf (AST/SGOT) 17U/L (0-50) Alanine Aminotransferase (ALT/SGPT) 10U/L (0-44) Alkaline Phosphatase 143U/L (25-150) Total Protein 6.4g/dL (6.4-8.4) Albumin 3.6g/dL (3.4-5.0) Urine Color Straw (YELLOW) Urine Appearance Hazy (CLEAR,HAZY) Urine pH 6.5 (5.0-8.0) Urine Specific [place] 1.010 (1.003-1.035) Urine Protein 30mg/dL (NEG,TRACE) Urine Glucose (UA) Negativemg/dL (NEGATIVE) Urine Ketones Negativemg/dL (NEGATIVE) Urine Occult Blood Trace (NEGATIVE) Urine Nitrite Negative (NEGATIVE) Urine Bilirubin Negative (NEGATIVE) Urine Urobilinogen Normalmg/dL (NORMAL) Urine Leukocyte Esterase Negative (NEGATIVE) Urine RBC 0-2/hpf (0-2) Urine WBC 0-5/hpf (0-5) Urine Epithelial Cells Occasional/hpf (NONE-MOD) Urine Crystals None seen (NONE SEEN) Urine Bacteria None/hpf (NONE-FEW) Urine Hyaline Casts None/lpf (NONE) Urine Granular Casts None seen (NONE SEEN) Urine Waxy Casts None seen (NONE SEEN) Urine Red Blood Cell Casts None seen (NONE SEEN) Urine White Blood Cell Casts None seen (NONE SEEN) Urine Mucus None seen (None Seen) Urine Trichomonas None seen (NONE SEEN) Urine Yeast None (NONE SEEN) Urinalysis Comment None Urine Culture Reflexed Not indicated Urine Random Creatinine 32mg/dL (24-392) Urine Random Total Protein 62mg/dL (0-15) Urine Opiates Screen Positive Urine Methadone Screen Negative Urine Barbiturates Screen Negative Urine Amphetamines Screen Positive Urine Benzodiazepines Screen Negative Urine Cocaine Metabolite Screen Negative Urine Cannabinoids Screen Negative Discharge Medications No Active Prescriptions or Reported Meds Followup Plan Disposition: The patient left AGAINST MEDICAL ADVICE despite being told that he risk serious illness and/or if he leaves left AGAINST MEDICAL ADVICE. Time spent The patient left AGAINST MEDICAL ADVICE Sanchez Hidalgo MD Nov 18, 2016 01:18
[2016-11-18 08:17] LABS: Vitamin B12 386 pg/mL (211-946)
== END 2016-11-17 13:10 | disposition left against medical advice (07) | DRG 682 ==
LOC: MPC 22:22
PROVIDERS: ADMIT Hospitalist; ATTEND Hospitalist
PROC: 4A033R1 Measurement of Arterial Saturation, Peripheral, Percutaneous Approach (ICD-10-PCS; principal; 2016-11-17)
DX: N17.9 Acute kidney failure, unspecified (principal); K22.6 Gastro-esophageal laceration-hemorrhage syndrome; K25.0 Acute gastric ulcer with hemorrhage; D62 Acute posthemorrhagic anemia; E87.2 Acidosis; F10.10 Alcohol abuse, uncomplicated; Z86.711 Personal history of pulmonary embolism; Z86.718 Personal history of other venous thrombosis and embolism; Z79.01 Long term (current) use of anticoagulants; F17.210 Nicotine dependence, cigarettes, uncomplicated; E87.5 Hyperkalemia; E83.41 Hypermagnesemia; F19.10 Other psychoactive substance abuse, uncomplicated; N18.6 End stage renal disease; D64.9 Anemia, unspecified; Z91.19 Patient's noncompliance with other medical treatment and regimen

== ENCOUNTER 2016-11-25 08:35 | Inpatient (IN) | payer OTHER, MEDICAID ==
[2016-11-25] VITALS (11 sets, daily range): BP systolic 107–175; BP diastolic 48–103; PULSE 93–115; RESP 16–33; O2SAT 94–99
[2016-11-25 08:55] LABS: BASOPHILS % (AUTO) 0.2 % (0-3); EOSINOPHILS % (AUTO) 0.1 % (0-5); MONOCYTES % (AUTO) 6.1 % (4-12); Mean Corpuscular Hemoglobin 30.3 pg (27.0-35.0); Mean Corpuscular Volume 87.3 fL (81-100); NEUTROPHILS % (AUTO) 87.1 % (40-74); Platelet Count 383 bil/L (150-400)
--- NOTE | 2016-11-25 09:02 | DRSVH ---
PROCEDURE: X-RAY CHEST ONE VIEW, PORTABLE ([id number]) INDICATIONS: seizure TECHNIQUE: One view of the chest was acquired. COMPARISON: 05/26/2016 FINDINGS: Surgical changes and devices: None. Lungs and pleura: No pleural effusions or pneumothorax. Lungs are clear. Mediastinum: Mediastinal contours appear normal. Heart size is normal. Bones and chest wall: No suspicious bony lesions. Overlying soft tissues appear unremarkable. IMPRESSION: No acute cardiopulmonary abnormality. No evidence of aspiration. Dictated by: Frank Jain M.D. on 11/25/2016 at 8:59 Approved by: Frank Jain M.D. on 11/25/2016 at 9:00
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
[2016-11-25] MEDS ORDERED: 0.9% Sodium Chloride 1,000 ML IV ONE (09:23)
[2016-11-25] MEDS: 3% Sodium Chloride Inj 500 ML IV SCH ×2 (09:48→12:45)
[2016-11-25 10:54] LABS: COLOR,URINE STRAW (YELLOW)
[2016-11-25 10:55] LABS: APPEARANCE,URINE HAZY (CLEAR,HAZY); OCCULT BLOOD,URINE SMALL (NEGATIVE); UROBILINOGEN,URINE NORMAL (NORMAL)
--- NOTE | 2016-11-25 11:33 | DRSVH ---
PROCEDURE: CT BRAIN WITHOUT CONTRAST ([id number]) INDICATIONS: ams; eval for mass, bleed, etc TECHNIQUE: Noncontrast 4.5 mm thick angled axial sections acquired from the foramen magnum to the vertex, with c oronal reformats. COMPARISON: [facility], CT, CT BRAIN WO CON, 06/26/2015, 14:11. FINDINGS: Image quality: Excellent. CSF spaces: Basal cisterns are patent. No extra-axial fluid collections. Ventricles are normal in size and shape. Brain: No midline shift. No intracranial masses or hemorrhage. Carbajal-white matter interface is norm al. Skull and face: Calvarium and visualized facial bones are intact, without suspicious lesions. Sinuses: Visualized sinuses and mastoids are clear. IMPRESSION: No acute intracranial findings. No findings to explain altered mental status. If further characterization is warranted, MRI of the brain could be considered. Dictated by: Montse Dubose M.D. on 11/25/2016 at 11:29 Approved by: Montse Dubose M.D. on 11/25/2016 at 11:32
[2016-11-25] MEDS ORDERED: 3% Sodium Chloride Inj 500 ML IV SCH (12:35)
[2016-11-25] MEDS ORDERED: Potassium Chloride Inj 20 MEQ in Dextrose 5% 250 ML IV ONE (12:40)
[2016-11-25 12:57] LABS: Magnesium 3.3 mg/dL (1.6-2.6); Phosphorus 5.2 mg/dL (2.5-4.9)
[2016-11-25] MEDS ORDERED: Alum-Mag Hydrox-Simeth 30 mL Suspension PO PRN (13:05)
[2016-11-25] MEDS ORDERED: Polyethylene Glycol (PEG) 17 Gm Powder PO PRN (13:05)
[2016-11-25] MEDS ORDERED: levETIRAcetam Inj 1,000 MG in IV Premix 1 EACH IV ONE (13:05)
[2016-11-25] MEDS ORDERED: Senna-Docusate 8.6-50 mg Tablet PO PRN (13:05)
[2016-11-25] MEDS ORDERED: Ondansetron 2 mg/mL 2 mL Inj IVPUSH PRN (13:05)
[2016-11-25 13:44] LABS: INR 0.95 ratio
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
[2016-11-25 16:37] LABS: BASOPHILS % (AUTO) 0.1 % (0-3); EOSINOPHILS % (AUTO) 0 % (0-5); MONOCYTES % (AUTO) 5.3 % (4-12); Mean Corpuscular Hemoglobin 30.5 pg (27.0-35.0); Mean Corpuscular Volume 85.5 fL (81-100); NEUTROPHILS % (AUTO) 91.2 % (40-74); Platelet Count 297 bil/L (150-400)
--- NOTE | 2016-11-25 18:39 | NUR ---
Rec'd to room 2018 from ER via [place]. Upon arrival and prior to transfer to CCU bed pt is witnessed to have a generalized seizure lasting about 90 seconds. Ativan 2mg IV administered by WAITER/WAITRESS. Lateral transfer safely accomplished with total of four caregivers. Vital signs stable throughout day. Pt in mostly post ictal state remainder of day with only a couple transient episodes of more or less clarity. One gram Keppra given as ordered. No further seizure activity observed. 16f hays catheter placed soon after arrival to floor, UA sent and is on hold in lab. Sodium level 119 when results rec'd at 1700. MD aware, no additional orders. Potassium replaced. AM labs have been ordered. No visitors today. Admit completed by admit RN. One telephone call from a 'brother' , information limited to status/condition. No valuables, electronics, or money present on admit.
[2016-11-25] MEDS ORDERED: Famotidine Inj 50 ML IV SCH (20:30)
[2016-11-25] MEDS: Heparin 5,000 Unit/mL Inj SUBQ SCH (20:52)
[2016-11-26] VITALS: BP 123/71; PULSE 88; RESP 13; O2SAT 98
[2016-11-26 02:57] LABS: BASOPHILS % (AUTO) 0.1 % (0-3); EOSINOPHILS % (AUTO) 0.1 % (0-5); MONOCYTES % (AUTO) 6.1 % (4-12); Mean Corpuscular Hemoglobin 30.5 pg (27.0-35.0); Mean Corpuscular Volume 85.5 fL (81-100); NEUTROPHILS % (AUTO) 84.8 % (40-74); Platelet Count 264 bil/L (150-400)
[2016-11-26 04:00] VITALS: BP 109/68; PULSE 89; RESP 12; O2SAT 98
--- NOTE | 2016-11-26 05:44 | NUR ---
Mentation Vs as noted. Pt minimally arousable during the evening. Would open eyes briefly and mumble but not really interact purposefully. No seizure activity noted through the night. Seizure pads on bedrails. This am 0500 pt awoke to stimulation, and conversing more appropriately. Makes good eye contact and follows instructions. Taking sips water without problems. Saline lock in place. Cardoza intact with total 1250ml uop this night. Tele sinus rhythm 80s.
[2016-11-26 07:46] VITALS: BP 118/71; PULSE 95; RESP 19; O2SAT 97
[2016-11-26] MEDS ORDERED: Potassium Chloride 20 mEq SR Tablet PO ONE (07:55)
[2016-11-26] MEDS: Heparin 5,000 Unit/mL Inj SUBQ SCH (08:11)
[2016-11-26] MEDS ORDERED: Thiamine Inj 100 MG in 0.9% Sodium Chloride 100 ML IV SCH (08:30)
[2016-11-26] MEDS ORDERED: Multivit-Miner-Folic Acid-Iron Tablet PO SCH (08:30)
[2016-11-26] MEDS ORDERED: Famotidine Inj 50 ML IV SCH (08:30)
--- NOTE | 2016-11-26 08:43 | PCM.PNMED ---
Subjective Date of Service Nov 26, 2016 Subjective He is awake and somewhat lethargic. He cannot state where he is. He is not able to relate interact much. He is very delayed answers to questions. He does deny any pain and states that he may have had alcohol on Monday. No overnight events Exam Vital Signs Vital Sign - Last Date Time Temp Pulse Resp B/P Pulse Ox O2 Delivery O2 Flow Rate FiO2 11/26/16 07:46 36.9 95 19 118/71 97 Room Air Intake and Output 11/25/16 11/25/16 11/26/16 Cumulative From/Thru 15:00 23:00 07:00 11/25/16 09:39 - 11/26/16 05:37 Intake Total 1100 ml 350 ml 1450 ml Output Total 875 ml 875 ml Balance 1100 ml -525 ml 575 ml Intake Oral 0 ml 0 ml IV Total 1100 ml 350 ml 1450 ml Output Urine Total 875 ml 875 ml # Bowel Movements 0 0 Exam Alert and oriented to place and person. Lethargic. Slow speech. Flat affect Anicteric sclera. Lungs are clear with normal rate and effort Heart is regular without murmur gallop or rub Abdomen soft nontender, flat Extremities are free of edema. Skin is free of rash or lesions. IVs and Medications Medications Reviewed: Medications were reviewed in detail Lab and Diagnostics Result Diagram: 11/26/1623411/26/16234 Assessment & Plan Hyponatremia, POA. Improving with sodium up to 124. This likely relates to alcohol intoxication. The patient was given 2 boluses of hypertonic saline at 100 moles each. This was coordinated with nephrology. The patient will have repeat labs at 1600. Continue fluid restriction. Seizure, POA. Improved, no recurrence. This may relate to hyponatremia or alcohol withdrawal. He was given Keppra 1 g upon arrival and will be managed with lorazepam as needed. We will correct his sodium and place him on CIWA protocol. We will hold on any further antiepileptics at this point. Probable alcohol withdrawal, POA, stable. CIWA protocol, no changes are planned. Chronic kidney disease stage IV, POA, stable. We will follow carefully and avoid nephrotoxins. Polysubstance abuse, POA. His initial urine toxicity was negative for evidence of other ingestions. We will follow clinically and inquire when he is more stable. The patient is full resuscitation Impression status post with a length of stay estimated of over 2 nights. VTE Mechanical Devices: Intermittant Pneumatic CD Resuscitation Status: CPR: Attempt Resuscitation Mason Kaye MD Nov 26, 2016 08:43
--- NOTE | 2016-11-26 10:09 | PCM.PNNEPH ---
Subjective Date of Service Nov 26, 2016 Subjective The patient is a bit more awake and alert today still has a cloudy sensorium and some ongoing lethargy. He does states that he has been told that he has a history of renal problems but is unsure as to any evaluation or ongoing follow- up. He denies any headache, chest pain, shortness of breath, nausea or vomiting. His morning his sodium is 124, potassium 3.4, chloride of 81, bicarbonate 23, BUN and creatinine were 51 and 3.78 respectively. His hemoglobin is 10.3. Exam Vital Signs Vital Sign - Last Date Time Temp Pulse Resp B/P Pulse Ox O2 Delivery O2 Flow Rate FiO2 11/26/16 07:46 36.9 95 19 118/71 97 Room Air Intake and Output 11/25/16 11/25/16 11/26/16 Cumulative From/Thru 15:00 23:00 07:00 11/25/16 09:39 - 11/26/16 05:37 Intake Total 1100 ml 350 ml 1450 ml Output Total 875 ml 875 ml Balance 1100 ml -525 ml 575 ml Intake Oral 0 ml 0 ml IV Total 1100 ml 350 ml 1450 ml Output Urine Total 875 ml 875 ml # Bowel Movements 0 0 Exam HEENT examination is remarkable for pale sclera. Neck is supple without adenopathy, thyromegaly, or jugular venous distention. Lungs are clear to auscultation. Heart was regular and rhythmical with a soft systolic murmur. Abdomen is soft without any tenderness rebound guarding masses or hepatosplenomegaly. Extremities did not show any evidence of any clubbing, cyanosis, or edema. Half and half are noted. Skin turgor is good. Lab and Diagnostics Result Diagram: 11/26/16 0235 11/26/16 0235 Plan Impression Impression #1 acute symptomatic hyponatremia with bulimia which is resolved. # 2 CK D stage IV #3 seizure disorder #4 metabolic acidosis #5 hypokalemia. Recommendations #1 I would like to obtain a renal ultrasound along with a thyroid hormone level and a vitamin D levels, begin Renvela 800 mg 3 times a day with meals and nephro vit Joey Briseno DO Nov 26, 2016 10:09
[2016-11-26] MEDS ORDERED: Vitamin B Complex/Vit C Tablet PO SCH (10:10)
--- NOTE | 2016-11-26 11:54 | NUR ---
Discharge AMA Patient was awake this morning. He was able to follow commands. Mumbled speech with some delay in expressing words. Initially patient was cooperative and calm. At 0905 patient removed his monitoring leads, pulled his IV and attempted to pull his Cardoza out. Patient stated: "I am leaving now!" was made aware of patient decision to leave AMA. Several attempts were made by staff to explain the implication of patient leaving AMA and the risks he was putting himself by making this decision. Patient insisted and became agitated. Cardoza catheter was removed and the patient was asked to singed AMA documentation. Initially patient refused to sing AMA document and his agitation continued. Security was called to stand by if patients agitation would escalate. At the time patient was able to sing AMA document. Patient did not have any money/credit cards or means of transportation. Several attempts were made to contact patients contact numbers to arrange transport for him to [place] but without success. patient was not able to recall any phone numbers. Out of the contact numbers available from this and previous admissions some of the numbers were out of service or with continuous busy signal. Messages were left where possible. Patient was willing to stay/ was persuaded to stay in his room without any monitoring for some time to see if his ride home could be arranged. [employer] was asked for assistance but with the same results. Because of the circumstances of his discharge patient did not qualify for any financial assistance with arranging a yellow cab. At 1125 patient insisted on leaving and walk out. Patient declined any farther help.
--- NOTE | 2016-11-26 13:17 | PCM.DC.MED ---
Discharge Summary Date of Service Nov 26, 2016 Dates of Hospitalization Date of Hospital Admission Nov 25, 2016 at 12:20 Date of Discharge: Nov 26, 2016 Providers: Admitting Physician: Mason Kaye MD Primary Care Physician: Nopcp Attending Physician: Mason Kaye MD Diagnosis at Time of Discharge Diagnosis at Time of Discharge 1. AMA discharge 2. Metabolic encephalopathy, improving 3. Seizures, likely secondary to hyponatremia and alcohol fall, improving 4. Euvolemic hyponatremia, improving. 5. Alcohol withdrawal syndrome Consultations Nephrology, Dr. Briseno Procedures XRay, CTs & MRIs Brain CT at time of admission, unremarkable Chest x-ray at time of admission, unremarkable Brief History All history is obtained from the ED physician. The patient has a known history of recurrent admissions for alcohol and alcohol withdrawal. Apparently he was seen to have a seizure at home today. Medics were called. The living circumstances are not clear and who saw the seizure or call for help is also not clear. It is said that he was given transport to the hospital after his seizure aborted but then had a recurrent seizure and was given Versed 5 mg IM. Upon arrival to the ED the patient was postictal. He was found to have a sodium of 1:15 and usually has a sodium of about 1:30. The patient also had evidence of tongue trauma from his seizure at the time of evaluation the ER and had a lactic acid of 18. The patient remains postictal after having a third seizure in the ER having been given lorazepam. He is minimally arousable but appears comfortable. He is oxygenating and ventilating without difficulty. He is not able to provide any further history. Hospital Course Hyponatremia, POA. Improving with sodium up to 124. This likely relates to alcohol intoxication. The patient was given 2 boluses of hypertonic saline at 100 moles each. This was coordinated with nephrology. The patient will have repeat labs at 1600. Continue fluid restriction. Seizure, POA. Improved, no recurrence. This may relate to hyponatremia or alcohol withdrawal. He was given Keppra 1 g upon arrival and will be managed with lorazepam as needed. We will correct his sodium and place him on CIWA protocol. We will hold on any further antiepileptics at this point. Probable alcohol withdrawal, POA, stable. CIWA protocol, no changes are planned. Chronic kidney disease stage IV, POA, stable. We will follow carefully and avoid nephrotoxins. Polysubstance abuse, POA. His initial urine toxicity was negative for evidence of other ingestions. We will follow clinically and inquire when he is more stable. The patient is full resuscitation Impression status post with a length of stay estimated of over 2 nights. The patient was admitted and initially given 2 small boluses of hypertonic saline, 100 mils each with the guidance of nephrology for seizures in context of hyponatremia with a sodium of 1:15. He was on fluid restricted and observe seizure precautions and had no further seizure activity. On the day of discharge his mental status improved significantly. He did have a sodium of 124. The patient had no seizure activity since being moved from March 08. Shortly after being examined he notes that he was going to leave AGAINST MEDICAL ADVICE. All measures were taken to help support the patient in improving his decision and also efforts were made to reach family and he was tried for further assistance without success. Ultimately the patient did leave the hospital edwards AGAINST MEDICAL ADVICE. He is felt to be high risk for adverse outcomes and readmission. Exam Vital Signs (Last) Date Time Temp Pulse Resp B/P Pulse Ox O2 Delivery O2 Flow Rate FiO2 11/26/16 07:46 36.9 95 19 118/71 97 Room Air Exam Patient was seen and examined on the day of discharge, prior to his AMA Test 11/25/16 08:40 11/25/16 09:39 11/25/16 11:50 11/25/16 13:10 Prothrombin Time 10.2sec (8.1-12.5) Prothromb Time International Ratio 0.95ratio Hemoglobin A1c 4.8% (4.8-5.6) Osmolality 268 (275-300) Hold [place] Top Tube Received (Received) Alcohols < 10mg/dL (0-10) Urine Color Straw (YELLOW) Urine Appearance Hazy (CLEAR,HAZY) Urine pH 8.0 (5.0-8.0) Urine Specific [place] 1.010 (1.003-1.035) Urine Protein 100mg/dL (NEG,TRACE) Urine Glucose (UA) Negativemg/dL (NEGATIVE) Urine Ketones Negativemg/dL (NEGATIVE) Urine Occult Blood Small (NEGATIVE) Urine Nitrite Negative (NEGATIVE) Urine Bilirubin Negative (NEGATIVE) Urine Urobilinogen Normalmg/dL (NORMAL) Urine Leukocyte Esterase Negative (NEGATIVE) Urine RBC 3-10/hpf (0-2) Urine WBC 0-5/hpf (0-5) Urine Epithelial Cells Occasional/hpf (NONE-MOD) Urine Crystals None seen (NONE SEEN) Urine Bacteria None/hpf (NONE-FEW) Urine Hyaline Casts None/lpf (NONE) Urine Granular Casts None seen (NONE SEEN) Urine Waxy Casts None seen (NONE SEEN) Urine Red Blood Cell Casts None seen (NONE SEEN) Urine White Blood Cell Casts None seen (NONE SEEN) Urine Mucus None seen (None Seen) Urine Trichomonas None seen (NONE SEEN) Urine Yeast None (NONE SEEN) Urinalysis Comment None Phosphorus Level 5.2mg/dL (2.5-4.9) Magnesium Level 3.3mg/dL (1.6-2.6) Total Creatine Kinase 339U/L (21-232) Hold Urine Received (Received) Test 11/25/16 16:00 11/26/16 02:35 Lactic Acid Level 0.6mmol/L (0.4-2.0) Procalcitonin 0.50ng/mL (0.00-0.08) White Blood Count 9.2th/mm3 (3.8-10.1) Red Blood Count 3.38mil/mm3 (4.40-5.80) Hemoglobin 10.3g/dL (13.8-17.2) Hematocrit 28.9% (41.0-50.0) Mean Corpuscular Volume 85.5fL (81-100) Mean Corpuscular Hemoglobin 30.5pg (27.0-35.0) Mean Corpuscular Hemoglobin Concent 35.6% (32.0-37.0) Red Cell Distribution Width 14.2% (12.3-15.4) Platelet Count 264bil/L (150-400) Neutrophils (%) (Auto) 84.8% (40-74) Lymphocytes (%) (Auto) 8.7% (14-46) Monocytes (%) (Auto) 6.1% (4-12) Eosinophils (%) (Auto) 0.1% (0-5) Basophils (%) (Auto) 0.1% (0-3) Sodium Level 124mEq/L (134-144) Potassium Level 3.4mEq/L (3.5-5.2) Chloride Level 81mEq/L (97-108) Carbon Dioxide Level 23mmol/L (18-29) Blood Urea Nitrogen 51mg/dL (6-20) Creatinine 3.78mg/dL (0.76-1.27) Estimat Glomerular Filtration Rate 20mL/min (>59) Glucose Level 94mg/dL (60-99) Calcium Level 7.6mg/dL (8.5-10.1) Total Bilirubin 0.4mg/dL (0.0-1.2) Aspartate Amino Transf (AST/SGOT) 36U/L (0-50) Alanine Aminotransferase (ALT/SGPT) 15U/L (0-44) Alkaline Phosphatase 122U/L (25-150) Total Protein 6.8g/dL (6.4-8.4) Albumin 3.3g/dL (3.4-5.0) Discharge Medications Unable to Obtain Active Prescriptions or Reported Meds Followup Plan Disposition: AGAINST MEDICAL ADVICE Time spent 40 minutes Mason Kaye MD Nov 26, 2016 13:17
== END 2016-11-26 11:30 | disposition left against medical advice (07) | DRG 640 ==
LOC: SED 08:35 → PCC 12:20 → CCU 12:38
PROVIDERS: ADMIT Hospitalist; ATTEND Hospitalist
DX: E87.1 Hypo-osmolality and hyponatremia (principal); G93.41 Metabolic encephalopathy; N18.4 Chronic kidney disease, stage 4 (severe); F10.239 Alcohol dependence with withdrawal, unspecified; R56.9 Unspecified convulsions; Z86.718 Personal history of other venous thrombosis and embolism; Z79.01 Long term (current) use of anticoagulants; F17.210 Nicotine dependence, cigarettes, uncomplicated; E87.2 Acidosis; E87.6 Hypokalemia